=== PATIENT | female | born 1940 | race Caucasian/White ===

== ENCOUNTER → 2017-04-15 | Outpatient (CLI) | payer MEDICARE, BC, OTHER | LOC: M RAD 08:46 | PROVIDERS: ATTEND Family Medicine | DX: Z12.31 Encounter for screening mammogram for malignant neoplasm of breast (principal); Z78.0 Asymptomatic menopausal state; Z92.0 Personal history of contraception ==

== ENCOUNTER → 2018-04-30 | Outpatient (CLI) | payer MEDICARE, BC, OTHER ==
[2018-04-30 10:20] LABS: CREATININE FOR GFR 0.57 MG/DL (0.55-1.30); GLOMERULAR FILTRATION RATE > 60.0 (>39)
[2018-04-30 10:20] LABS: BLOOD UREA NITROGEN 10 MG/DL (7-18)
== END ==
LOC: M LAB 09:04
DX: R56.9 Unspecified convulsions (principal)
CPT/HCPCS: 82565

== ENCOUNTER → 2018-05-04 | Outpatient (CLI) | payer MEDICARE, BC, OTHER ==
[~2018-05-04] MED LIST: ISOVUE-370 76% 100ML VIAL (Q9967) As Ordered
== END ==
LOC: M RAD 09:14
DX: D32.0 Benign neoplasm of cerebral meninges (principal)
CPT/HCPCS: Q9967

== ENCOUNTER → 2018-07-22 | Outpatient (CLI) | payer MEDICARE, BC, OTHER | LOC: M WUC 09:53 | DX: M19.011 Primary osteoarthritis, right shoulder (principal) | CPT/HCPCS: 73030 ==

== ENCOUNTER → 2018-07-30 | Outpatient (CLI) | payer MEDICARE, BC | LOC: M WHC 10:07 | DX: Z12.31 Encounter for screening mammogram for malignant neoplasm of breast (principal) | CPT/HCPCS: 77067 ==

== ENCOUNTER → 2018-10-29 | Outpatient (REF) | payer MEDICARE, BC | LOC: M LABNEURO 09:17 | PROVIDERS: ATTEND Physician Assistant Medical | DX: R56.9 Unspecified convulsions (principal); Z51.81 Encounter for therapeutic drug level monitoring; Z79.899 Other long term (current) drug therapy ==

== ENCOUNTER → 2018-12-11 | Outpatient (CLI) | payer MEDICARE, BC ==
[2018-12-11 09:22] LABS: BLOOD UREA NITROGEN 22 MG/DL (7-18); CALCIUM LEVEL 8.9 MG/DL (8.8-10.2); CARBON DIOXIDE LEVEL 29 MEQ/L (21-32); CHLORIDE LEVEL 102 MEQ/L (98-107); CHOLESTEROL LEVEL 186 MG/DL (<200); CHOLESTEROL RISK RATIO 2.776 (<5); CREATININE FOR GFR 0.59 MG/DL (0.55-1.30); GLOMERULAR FILTRATION RATE > 60.0 (>32); GLUCOSE, FASTING 114 MG/DL (70-100); HDL CHOLESTEROL 67 MG/DL (>40); LDL CHOLESTEROL 96 MG/DL (<100); NON-HDL-C 119 MG/DL; POTASSIUM SERUM 4.1 MEQ/L (3.5-5.1); SODIUM LEVEL 139 MEQ/L (136-145); TRIGLYCERIDES LEVEL 114 MG/DL (<150)
== END ==
LOC: M LAB 08:16
PROVIDERS: ATTEND Internal Medicine Cardiovascular Disease
DX: E78.2 Mixed hyperlipidemia (principal); I10 Essential (primary) hypertension

== ENCOUNTER 2019-04-13 17:32 | Inpatient (IN) | payer MEDICARE, BC, OTHER ==
[~2019-04-13] VITALS: Ht 157.5 cm; Wt 76.7 kg
[2019-04-13] MEDS ORDERED: ISOS30TA4 PO (17:48)
[2019-04-13] MEDS ORDERED: OMEP-218 PO (17:48)
[2019-04-13] MEDS ORDERED: LISI-538 PO (17:48)
[2019-04-13] MEDS ORDERED: PRAV40TA2 PO (17:48)
[2019-04-13] MEDS ORDERED: PHEN1TAB26 PO (17:48)
[2019-04-13] MEDS ORDERED: GI COCKTAIL 50ML BTL(HYOSCYAMINE/MAALOX/LIDOCAINE VISCOUS)(1:3:1) As Ordered ONE (17:56)
[2019-04-13] MEDS ORDERED: GI COCKTAIL 50ML BTL(HYOSCYAMINE/MAALOX/LIDOCAINE VISCOUS)(1:3:1) PO ONE (18:00)
[2019-04-13 18:15] LABS: BASO % 0.3 % (0.0-1.0); EOS # 0.1 10^3/uL (0.0-0.50); HEMATOCRIT 38.3 % (36.0-47.0); HEMOGLOBIN 12.9 g/dl (12.0-15.5); LYMPH # 2.2 10^3/uL (1.5-4.5); LYMPH % 15.1 % (24.0-44.0); MEAN CORPUSCULAR HEMOGLOBIN 30.7 pg (27.0-33.0); MEAN CORPUSCULAR HGB CONC 33.7 g/dl (32.0-36.5); MEAN CORPUSCULAR VOLUME 91.2 fl (80.0-96.0); MONO # 1.2 10^3/uL (0.0-0.8); MONO % 8.4 % (0.0-5.0); NEUTROPHILS # 10.8 10^3/uL (1.8-7.7); NEUTROPHILS % 74.6 % (36.0-66.0); PLATELET COUNT, AUTOMATED 245 10^3/uL (150-450); WHITE BLOOD COUNT 14.5 10^3/uL (4.0-10.0)
[2019-04-13 18:41] LABS: BLOOD UREA NITROGEN 20 MG/DL (7-18); CALCIUM LEVEL 9.1 MG/DL (8.8-10.2); CARBON DIOXIDE LEVEL 26 MEQ/L (21-32); CHLORIDE LEVEL 101 MEQ/L (98-107); CK-MB VALUE MASS 3.1 NG/ML (<3.6); CPK CREATINE PHOSPHOKINASE 115 U/L (26-192); GLOMERULAR FILTRATION RATE > 60.0 (>32); GLUCOSE, FASTING 142 MG/DL (70-100); POTASSIUM SERUM 3.4 MEQ/L (3.5-5.1); SODIUM LEVEL 137 MEQ/L (136-145); TROPONIN I < 0.02 NG/ML (< 0.10)
[2019-04-13 18:56] LABS: ALBUMIN 3.5 GM/DL (3.2-5.2); ALT/SGPT 32 U/L (12-78); BILIRUBIN,DIRECT < 0.1 MG/DL (0.0-0.2); BILIRUBIN,TOTAL 0.2 MG/DL (0.2-1.0); LIPASE 264400 U/L (73-393); TOTAL PROTEIN 7.7 GM/DL (6.4-8.2)
[2019-04-13] MEDS ORDERED: ISOVUE-370 76% 100ML VIAL (Q9967) As Ordered ONE (19:03)
--- NOTE | 2019-04-13 19:23 | ECGEPIP ---
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
--- NOTE | 2019-04-13 20:26 | REPVR ---
EXAM: CT Abdomen and Pelvis With Contrast EXAM DATE/TIME: 04/13/2019 7:16 PM CLINICAL HISTORY: 78 years old, female; Abdominal pain; Generalized; Prior surgery TECHNIQUE: Imaging protocol: Axial computed tomography images of the abdomen and pelvis with intravenous contrast. Coronal and sagittal reformatted images were created and reviewed. Radiation optimization: All CT scans at this facility use at least one of these dose optimization techniques: automated exposure control; mA and/or kV adjustment per patient size (includes targeted exams where dose is matched to clinical indication); or iterative reconstruction. Contrast material: ISOVUE 370; Contrast volume: 100 ml; Contrast route: IV; COMPARISON: CT ABD PELVIS WITH CONTRAST 07/08/2016 7:49 PM FINDINGS: There is a moderate hiatal hernia. Mild atelectatic changes at the posterior lung bases. Lung bases are otherwise clear. No pleural or pericardial effusion. Probable mild fatty infiltration of the liver. Vague, irregular area of low attenuation in the medial segment of the left lobe of the liver (image #35) may represent a hemangioma. Appearance is similar to previous examination. No other hepatic abnormalities. The spleen and adrenals are grossly normal. Gallbladder surgically absent. Pancreas is grossly normal with no focal parenchymal abnormalities. Moderate inflammatory changes are seen in the peripancreatic fat adjacent to the pancreas. Findings are consistent with pancreatitis. No evidence of pancreatic pseudocyst formation. Kidneys demonstrate symmetric function. No focal parenchymal abnormalities or obstructive uropathy. Small and large bowel loops are grossly normal. No evidence of enteric obstruction. Within the pelvis, there is a benign-appearing left adnexal cyst. This is thin walled and fluid attenuation and measures up to 5 cm. On previous examination of 2015, this measured 3.1 cm. Pelvic organs are otherwise unremarkable. No significant free fluid in the pelvis. Atherosclerotic changes identified within the abdominal aorta and aortic branch vessels with no evidence of aneurysmal dilatation. Anterior compression deformity of L2, unchanged. Bilateral pars interarticularis defects at L5 with grade 2 anterolisthesis, unchanged. Osseous structures are otherwise unremarkable for age. IMPRESSION: Moderate inflammatory changes in the peripancreatic fat consistent with acute pancreatitis. No evidence of pancreatic pseudocyst formation. Probable mild fatty infiltration of the liver. Moderate hiatal hernia. No other acute intra-abdominal or pelvic process. Additional nonemergent findings as described above. Electronically signed by: Ryan Natarajan On 04/13/2019 20:26:20 PM
[2019-04-13] MEDS ORDERED: NS 1,000 ML IV ONE ×2 (20:45→22:15)
[2019-04-13] MEDS ORDERED: MORPHINE 2 MG/ML 1ML SYRINGE (J2270) IV PRN (20:45)
[2019-04-13] MEDS ORDERED: FLON1SPR NARES (20:50)
[2019-04-13] MEDS ORDERED: MULTCAP PO (20:50)
[2019-04-13] MEDS ORDERED: INDA125TA PO (20:50)
[2019-04-13] MEDS ORDERED: CALC500C14 PO (20:50)
[2019-04-13] MEDS ORDERED: ONDANSETRON 4MG/2ML VIAL (J2405) IV ONE (21:00)
[2019-04-13] MEDS ORDERED: ONDANSETRON 4MG/2ML VIAL (J2405) IV PRN (21:30)
[2019-04-13] MEDS ORDERED: MORPHINE 4 MG/ML 1ML VIAL/SYRINGE (J2270) IV PRN (21:30)
--- NOTE | 2019-04-13 21:58 | HPEPDOC ---
General Date of Admission 04/13/19 Date of Service: Apr 13, 2019 Chief Complaint The patient is a 78-year-old female admitted with a reason for visit of Chest Pain. Source: Patient, Family, RN/MD Exam Limitations: Hard of hearing Severity: Severe Associated Symptoms: Loss of appetite, Nausea History of Present Illness 78 year old female with PMH of hypertension, cerebral aneurysm s/p clipping, pancreatitis x 2 in the past presented to the ED with 1 day history of severe abdominal Pain. The pain is located in [facility] epigastrium and left upperquadrant, constant sharp in nature, 10/10 in intensity with some radiation down to the left lumber region. She has been having profuse waterry diarrhea with nausea for 2 days which stopped last night and then the pain started this morning after breakfast at about 10 am. Labs in [facility] ED [place] [id number]. [address] abdomen in the ED showed Moderate inflammatory changes in the peripancreatic fat consistent with acute pancreatitis. No evidence of pancreatic pseudocyst formation. Probable mild fatty infiltration of the liver. Moderate hiatal hernia. pateint is being admitted for acute pancreatitis. Home Medications Scheduled Calcium Carbonate (Calcium) 500 Mg Tab.chew, 500 MG PO BID, (Reported) Fluticasone Propionate (Flonase Allergy Relief) 9.9 Ml [place].susp, 2 SPRAY NARES DAILY, (Reported) Indapamide (Indapamide) 1.25 Mg Tablet, 1.25 MG PO DAILY, (Reported) Isosorbide Mononitrate (Isosorbide Mononitrate ER) 30 Mg Tab.er.24h, 30 MG PO DAILY, (Reported) Lisinopril (Lisinopril) 20 Mg Tablet, 20 MG PO DAILY, (Reported) Multivitamin (Multivitamins) 1 Each Capsule, 1 CAP PO DAILY, (Reported) Omeprazole (Omeprazole) 20 Mg Capsule.dr, 20 MG PO BID, (Reported) Phenobarbital (Phenobarbital) 97.2 Mg Tablet, 97.2 MG PO QHS, (Reported) Pravastatin Sodium (Pravastatin Sodium) 40 Mg Tablet, 40 MG PO DAILY, (Reported) MD TOLD PATIENT NOT TO TAKE UNTIL SHE MEETS WITH HIM Allergies Coded Allergies: aspirin (Verified Allergy, Unknown, was told not to take, 04/13/19) Past Medical History Medical History hypertension, cerebral aneurysm s/p clipping, pancreatitis x 2 , hyperlipidemia, hiatal hernia Surgical History Cerebral aneurysm clipping in 1989, cholecystectomy 6 years ago, one ovary removal, liver rupture and surgery for that Family History Significant Family History: Diabetes, Hypertension (father, children), Other (Fathr stroke) mother, children Social History * Smoker: non-smoker Alcohol: Denies Drugs: denies A-FIB/CHADSVASC A-FIB History Current/History of A-Fib/PAF?: No Review of Systems Constitutional: Denies: Chills, Fever, Night Sweats Eyes: Denies: Pain, Vision change ENT: Denies: Head Aches, Ear Pain, Dysphagia Skin: Denies: Rash, Lesions, Breakdown Pulmonary: Denies: Dyspnea, Cough Cardiovascular: Reports: Chest Pain Gastrointestinal: Reports: Nausea, Abdominal Pain, Diarrhea Genitourinary: Denies: Dysuria, Frequency, Incontinence, Retention Hematologic: Denies: Bruising, Bleeding Excessively Musculoskeletal: Denies: Neck Pain, Back Pain, Joint Pain, Muscle Pain, Spasms Neurological: Denies: Weakness, Numbness, Change in speech, Confusion Physical Examination General Exam: Positive: Alert, Cooperative, Moderate Distress Eye Exam: Positive: PERRLA, Conjunctiva & lids normal, EOMI; Negative: Sclera icteric ENT Exam: Positive: Atraumatic, Mucous membr. moist/pink, Pharynx Normal Neck Exam: Positive: Supple; Negative: JVD, thyromegaly Chest Exam: Positive: Clear to auscultation, Normal air movement Heart Exam: Positive: Tachycardic, Regular Rhythm, Normal S1, Normal S2; Negative: Gallops, Murmurs, Rubs Telemetry: Positive: No significant arrhythmia Abdomen Exam: Positive: BS Hypoactive, Tenderness (in the epigastirum, periumbilical, left upper quadrant), Other (rebound tenderness present, no guarding or rigidity) Extremity Exam: Negative: Clubbing, Cyanosis, Edema Skin Exam: Positive: Nl turgor and temperature; Negative: Breakdown, Lesion Vital Signs Vital Signs Date Time Temp Pulse Resp B/P (MAP) Pulse Ox O2 Delivery O2 Flow Rate FiO2 04/13/19 20:58 18 04/13/19 20:15 79 157/71 (99) 95 04/13/19 17:32 96.9 Room Air Laboratory Data Labs 24H Laboratory Tests 2 04/13/19 18:04: Immature Granulocyte % (Auto) 0.6, White Blood Count 14.5H, Red Blood Count 4.20, Hemoglobin 12.9, Hematocrit 38.3, Mean Corpuscular Volume 91.2, Mean Corpuscular Hemoglobin 30.7, Mean Corpuscular Hemoglobin Concent 33.7, Red Cell Distribution Width 11.9, Platelet Count 245, Neutrophils (%) (Auto) 74.6H, Lymphocytes (%) (Auto) 15.1L, Monocytes (%) (Auto) 8.4H, Eosinophils (%) (Auto) 1.0, Basophils (%) (Auto) 0.3, Neutrophils # (Auto) 10.8H, Lymphocytes # (Auto) 2.2, Monocytes # (Auto) 1.2H, Eosinophils # (Auto) 0.1, Basophils # (Auto) 0.0, Nucleated Red Blood Cells % (auto) 0.0, Anion Gap 10, Glomerular Filtration Rate > 60.0, Blood Urea Nitrogen 20H, Creatinine 0.80, Sodium Level 137, Potassium Level 3.4L, Chloride Level 101, Carbon Dioxide Level 26, Calcium Level 9.1, Total Creatine Kinase 115, Aspartate Amino Transf (AST/SGOT) 21, Alanine Aminotransferase (ALT/SGPT) 32, Alkaline Phosphatase 79, Total Bilirubin 0.2, D irect Bilirubin < 0.1, Creatine Kinase MB 3.1, Creatine Kinase MB Relative Index 2.70, Troponin I < 0.02, Total Protein 7.7, Albumin 3.5, Albumin/Globulin Ratio 0.83L, Lipase [id number] CBC/BMP Laboratory Tests 04/13/19 18:04 Red Blood Count 4.20, Mean Corpuscular Volume 91.2, Mean Corpuscular Hemoglobin 30.7, Mean Corpuscular Hemoglobin Concent 33.7, Red Cell Distribution Width 11.9, Neutrophils (%) (Auto) 74.6 H, Lymphocytes (%) (Auto) 15.1 L, Monocytes (%) (Auto) 8.4 H, Eosinophils (%) (Auto) 1.0, Basophils (%) (Auto) 0.3, Neutrophils # (Auto) 10.8 H, Lymphocytes # (Auto) 2.2, Monocytes # (Auto) 1.2 H, Eosinophils # (Auto) 0.1, Basophils # (Auto) 0.0, Calcium Level 9.1, Total Creatine Kinase 115 Assessment/Plan 78 year old female with PMH of hypertension, cerebral aneurysm s/p clipping, pancreatitis x 2 in the past presented to the ED with 1 day history of severe abdominal Pain. The pain is located in [facility] epigastrium and left upperquadrant, constant sharp in nature, 10/10 in intensity with some radiation down to the left lumber region. She has been having profuse waterry diarrhea with nausea for 2 days which stopped last night and then the pain started this morning after breakfast at about 10 am. Labs in [facility] ED [place] [id number]. [address] abdomen in the ED showed Moderate inflammatory changes in the peripancreatic fat consistent with acute pancreatitis. No evidence of pancreatic pseudocyst formation. Probable mild fatty infiltration of the liver. Moderate hiatal hernia. patient is being admitted for acute pancreatitis. Acute pancreatitis NPO, RL, pain control with IV morphine , Zofran for nausea allow sips of water and ice chips. Hypertension continue lisinopril with hold parameters hold indapamide Hyperlipidemia will hold statin H/O cerebral aneurysm with leak in 1989 s/p clipping continue phenobarbital Benign-appearing left adnexal cyst. This is thin walled and fluid attenuation and measures up to 5 cm. On previous examination of 2016, this measured 3.1 cm. outpatient follow up Anterior compression deformity of L2 unchanged from before. Plan / VTE VTE Prophylaxis Ordered?: Yes RADHA ERAZO MD Apr 13, 2019 21:58
[2019-04-13] MEDS: PHENobarbital 30 MG TAB PO SCH (22:19)
[2019-04-14] MEDS: LR 1,000 ML IV SCH ×4 (00:38→20:58)
[2019-04-14 01:39] VITALS: BP 162/72
[2019-04-14 04:00] VITALS: BP 127/59
[2019-04-14 06:58] LABS: BASO % 0.5 % (0.0-1.0); EOS # 0.2 10^3/uL (0.0-0.50); EOS % 2.2 % (0.0-3.0); HEMATOCRIT 39.5 % (36.0-47.0); HEMOGLOBIN 12.9 g/dl (12.0-15.5); LYMPH # 2.2 10^3/uL (1.5-4.5); LYMPH % 26.6 % (24.0-44.0); MEAN CORPUSCULAR HGB CONC 32.7 g/dl (32.0-36.5); MONO # 0.5 10^3/uL (0.0-0.8); MONO % 6.5 % (0.0-5.0); NEUTROPHILS # 5.3 10^3/uL (1.8-7.7); NEUTROPHILS % 63.6 % (36.0-66.0); PLATELET COUNT, AUTOMATED 225 10^3/uL (150-450); RED BLOOD COUNT 4.16 10^6/uL (4.00-5.40); WHITE BLOOD COUNT 8.3 10^3/uL (4.0-10.0)
[2019-04-14 07:22] LABS: AMYLASE 298 U/L (25-115); BLOOD UREA NITROGEN 14 MG/DL (7-18); CALCIUM LEVEL 8.4 MG/DL (8.8-10.2); CARBON DIOXIDE LEVEL 31 MEQ/L (21-32); CHLORIDE LEVEL 106 MEQ/L (98-107); CREATININE FOR GFR 0.75 MG/DL (0.55-1.30); GLOMERULAR FILTRATION RATE > 60.0 (>32); GLUCOSE, FASTING 105 MG/DL (70-100); LIPASE 3328 U/L (73-393); MAGNESIUM LEVEL 2.1 MG/DL (1.8-2.4); POTASSIUM SERUM 3.6 MEQ/L (3.5-5.1); SODIUM LEVEL 141 MEQ/L (136-145)
--- NOTE | 2019-04-14 07:30 | REP ---
REASON: Chest pain. COMPARISON: 12/30/2017, which is the latest prior. The technique utilized in obtaining the radiograph has magnified the cardiac silhouette and accentuated the interstitial markings. There is cardiomegaly accentuated by technique. There are chronic fibrotic changes status quo. No acute patchy parenchymal opacities or pleural effusions seem to have developed on this portable exam. The osseous structures are stable and intact. IMPRESSION: Chronic changes as described above without evidence of acute cardiopulmonary disease. Electronically Signed by Ryan Joel DO 04/14/2019 10:20 A
[2019-04-14 08:11] LABS: CHOLESTEROL LEVEL 163 MG/DL (<200); HDL CHOLESTEROL 56 MG/DL (>40); LDL CHOLESTEROL 89 MG/DL (<100); NON-HDL-C 107 MG/DL; TRIGLYCERIDES LEVEL 90 MG/DL (<150)
[2019-04-14] MEDS ORDERED: PANTOPRAZOLE 40MG INJ (PROTONIX) (C9113) IV SCH (09:00)
[2019-04-14] MEDS: ENOXAPARIN 30 MG/0.3 ML SYR (J1650) SC SCH (09:06)
[2019-04-14] MEDS: ISOSORBIDE MON. (IMDUR) 30 MG XR TAB PO SCH (09:08)
[2019-04-14] MEDS: LISINOPRIL 20 MG TAB PO SCH (09:08)
--- NOTE | 2019-04-14 13:20 | IPNPDOC ---
Text Note Date of Service The patient was seen on 04/14/19. NOTE Anuradha is seen on bedside rounds this morning, she is laying in bed. She states she feels better but she still has abdominal discomfort, she isn't hungry or interested in food/eating at this point in time. She otherwise denies cp, cough or sob, no n/v either. ROS: 12 point ROS reviewed with patient and negative except for above pertinent positive findings PE: Vitals: See below General: Pleasant 78 year old female laying in bed, in some discomfort from her abdomen but NAD otherwise, speaking in full sentences HEENT: Moist mucus membranes, EOMI, nares patent b/l, no JVD on examination Cardiac: Normal s1 and s2, no murmurs, rubs or gallops Resp:CTA b/l, no wheezing, rales or rhonchi appreciated Abdomen: NABSX4, no hepatosplenomegaly or masses appreciated,no rebound ridgity but tenderness to palpation and some guarding in RLQ and epigastric area Extremities: no cyanosis, mottling or edema PLAN: 1. Acute pancreatitis -Lipid panel pending, she states she does not drink ETOH, CT ab/pelvis appreciated -she continues to be NPO for now, she isn't hungry, abdomen pain is improving, C/w IVF -protonix -C/w pain control and zofran if needed 2. Hypertension -stable continue lisinopril with hold parameters holding indapamide 3. Hyperlipidemia Holding statin for now 4. H/O cerebral aneurysm with leak in 1989 s/p clipping -continue phenobarbital 5. Benign-appearing left adnexal cyst. -This is thin walled and fluid attenuation and measures up to 5 cm. On previous examination of 2015, this measured 3.1 cm. - Will benefit from outpatient follow up 6. DVT px -lovenox VS,Fishbone, I+O VS, Fishbone, I+O Laboratory Tests 04/13/19 18:04 Red Blood Count 4.20, Mean Corpuscular Volume 91.2, Mean Corpuscular Hemoglobin 30.7, Mean Corpuscular Hemoglobin Concent 33.7, Red Cell Distribution Width 11.9, Neutrophils (%) (Auto) 74.6 H, Lymphocytes (%) (Auto) 15.1 L, Monocytes (%) (Auto) 8.4 H, Eosinophils (%) (Auto) 1.0, Basophils (%) (Auto) 0.3, Neutrophils # (Auto) 10.8 H, Lymphocytes # (Auto) 2.2, Monocytes # (Auto) 1.2 H, Eosinophils # (Auto) 0.1, Basophils # (Auto) 0.0, Calcium Level 9.1, Total Creatine Kinase 115 04/14/19 06:45 Red Blood Count 4.16, Mean Corpuscular Volume 95.0, Mean Corpuscular Hemoglobin 31.0, Mean Corpuscular Hemoglobin Concent 32.7, Red Cell Distribution Width 11 .9, Neutrophils (%) (Auto) 63.6, Lymphocytes (%) (Auto) 26.6, Monocytes (%) (Auto) 6.5 H, Eosinophils (%) (Auto) 2.2, Basophils (%) (Auto) 0.5, Neutrophils # (Auto) 5.3, Lymphocytes # (Auto) 2.2, Monocytes # (Auto) 0.5, Eosinophils # (Auto) 0.2, Basophils # (Auto) 0.0, Calcium Level 8.4 L Vital Signs Date Time Temp Pulse Resp B/P (MAP) Pulse Ox O2 Delivery O2 Flow Rate FiO2 04/14/19 09:08 175/73 04/14/19 07:26 16 04/14/19 04:00 98.0 63 93 04/13/19 17:32 Room Air I&O- Last 24 Hours up to 6 AM 04/14/19 06:00 Intake Total 2000 ml Output Total 300 ml Balance 1700 ml GME ATTESTATION GME ATTESTATION My faculty preceptor for this patient encounter was physically present during the encounter and was fully available. All aspects of the patient interview, examination, medical decision making process, and medical care plan development were reviewed and approved by the faculty preceptor. The faculty preceptor is aware and concurs with the plan as stated in the body of this note and will attest to such by his/her cosignature. ATTENDING NOTE I, Lissa Duval, have independently examined this patient and performed my own physical exam, as well as reviewed the documentation and edited where necessary. I have discussed in detail with the resident / student the findings and plan of treatment as documented by the resident / student and edited their note. I agree with their findings and treatment plan and have edited their documentation. I w ill continue to follow the patient during this hospital stay. CHRISTOPHE TINOCO DO Apr 14, 2019 13:20 LISSA DUVAL MD Apr 14, 2019 13:21
[2019-04-14 14:00] VITALS: BP 125/88
[2019-04-14 20:00] VITALS: BP 144/60
[2019-04-14] MEDS: PHENobarbital 30 MG TAB PO SCH (20:58)
[2019-04-15] MEDS: LR 1,000 ML IV SCH (03:47)
[2019-04-15 06:00] VITALS: BP 150/69
[2019-04-15 06:53] LABS: BASO % 0.3 % (0.0-1.0); EOS # 0.2 10^3/uL (0.0-0.50); EOS % 2.5 % (0.0-3.0); HEMATOCRIT 33.5 % (36.0-47.0); HEMOGLOBIN 11.3 g/dl (12.0-15.5); LYMPH # 1.9 10^3/uL (1.5-4.5); LYMPH % 24.8 % (24.0-44.0); MEAN CORPUSCULAR HEMOGLOBIN 30.9 pg (27.0-33.0); MEAN CORPUSCULAR HGB CONC 33.7 g/dl (32.0-36.5); MEAN CORPUSCULAR VOLUME 91.5 fl (80.0-96.0); MONO # 0.7 10^3/uL (0.0-0.8); MONO % 8.7 % (0.0-5.0); NEUTROPHILS # 4.8 10^3/uL (1.8-7.7); PLATELET COUNT, AUTOMATED 202 10^3/uL (150-450); RED BLOOD COUNT 3.66 10^6/uL (4.00-5.40); WHITE BLOOD COUNT 7.6 10^3/uL (4.0-10.0)
[2019-04-15 07:11] LABS: BLOOD UREA NITROGEN 8 MG/DL (7-18); CALCIUM LEVEL 8.4 MG/DL (8.8-10.2); CARBON DIOXIDE LEVEL 29 MEQ/L (21-32); CHLORIDE LEVEL 106 MEQ/L (98-107); CREATININE FOR GFR 0.52 MG/DL (0.55-1.30); GLOMERULAR FILTRATION RATE > 60.0 (>32); GLUCOSE, FASTING 96 MG/DL (70-100); LIPASE 867 U/L (73-393); MAGNESIUM LEVEL 1.9 MG/DL (1.8-2.4); POTASSIUM SERUM 3.4 MEQ/L (3.5-5.1); SODIUM LEVEL 142 MEQ/L (136-145)
[2019-04-15] MEDS ORDERED: POTASSIUM CHLORIDE 10 MEQ SR TABLET PO ONE (07:30)
[2019-04-15] MEDS ORDERED: INDAPAMIDE 1.25MG TABLET PO SCH (09:00)
[2019-04-15] MEDS: ENOXAPARIN 30 MG/0.3 ML SYR (J1650) SC SCH (09:00)
[2019-04-15] MEDS ORDERED: PANTOPRAZOLE 40MG TAB (PROTONIX) PO SCH (09:00)
[2019-04-15 09:19] VITALS: BP 150/69
[2019-04-15] MEDS: LISINOPRIL 20 MG TAB PO SCH (09:19)
[2019-04-15] MEDS: ISOSORBIDE MON. (IMDUR) 30 MG XR TAB PO SCH (09:19)
--- NOTE | 2019-04-15 12:51 | DS.PDOC ---
Discharge Summary General Date of Admission Apr 13, 2019 at 21:30 Date of Discharge 6.20.19 Discharge Summary PROCEDURES PERFORMED DURING STAY: None ADMITTING DIAGNOSES: 1.Acute pancreatitis 2. Hypertension 3. Hyperlipidemia 4. H/O cerebral aneurysm with leak in 1989 s/p clipping 5. Benign-appearing left adnexal cyst. 6. Anterior compression deformity of L2 DISCHARGE DIAGNOSES: 1. 1.Acute pancreatitis 2. Hypertension 3. Hyperlipidemia 4. H/O cerebral aneurysm with leak in 1989 s/p clipping 5. Benign-appearing left adnexal cyst. 6. Anterior compression deformity of L2 COMPLICATIONS/CHIEF COMPLAINT: Acute Pancreatitis. HISTORY OF PRESENT ILLNESS: Per HPI """ 78 year old female with PMH of hypertension, cerebral aneurysm s/p clipping, pancreatitis x 2 in the past presented to the ED with 1 day history of severe abdominal Pain. The pain is located in the epigastrium and left upperquadrant, constant sharp in nature, 10/10 in intensity with some radiation down to the left lumber region. She has been having profuse watery diarrhea with nausea for 2 days which stopped last night and then the pain started this morning after breakfast at about 10 am. Labs in [facility] ED [place] [id number]. [address] abdomen in the ED showed Moderate inflammatory changes in the peripancreatic fat consistent with acute pancreatitis. No evidence of pancreatic pseudocyst formation. Probable mild fatty infiltration of the liver. Moderate hiatal hernia. pateint is being admitted for acute pancreatitis.""" HOSPITAL COURSE: During the course of her stay she was kept NPO and pain was controlled, she also received IVF. She achieved improvement in abdominal discomfort during her stay and her diet was advanced, she was able to tolerate this well without n/v or abdominal pain. Patient was cleared for discharge with instruction to follow up with PCP within 7 days. DISCHARGE MEDICATIONS: Please see below. ALLERGIES: Please see below. PHYSICAL EXAMINATION ON DISCHARGE: VITAL SIGNS: Please see below. GENERAL: pleasant 78 yo female laying in bed appearing much younger than her stated age, she is comfortable,NAD,speaking in full sentences HEENT: EOMI, no JVD appreciated, moist mucus membranes NECK: Supple CARDIOVASCULAR EXAMINATION: normal s1 and s1, no murmurs, rubs or gallops appreciated RESPIRATORY EXAMINATION: cta b/l , no wheezing, rales or rhonchi appreciated ABDOMINAL EXAMINATION: obese, nabsx4, no distension, nontender to palpation, no hepatosplenomegaly or masses appreciated, no rebound ridgity or guarding EXTREMITIES: no cyanosis, mottling or edema appreciated NEUROLOGICAL EXAMINATION: no focal deficits appreciated LABORATORY DATA: Please see below. IMAGING: CT ab/pelvis 04.13.19 IMPRESSION: Moderate inflammatory changes in the peripancreatic fat consistent with acute pancreatitis. No evidence of pancreatic pseudocyst formation. Probable mild fatty infiltration of the liver. Moderate hiatal hernia. No other acute intra-abdominal or pelvic process. Additional nonemergent findings as described above. CXR 04.13.19 Chronic changes as described above without evidence of acute cardiopulmonary disease. PROGNOSIS: favorable ACTIVITY: As tolerated DIET: as tolerated DISCHARGE PLAN: home DISPOSITION: stable to dc home DISCHARGE INSTRUCTIONS: 1. Please follow up with PCP within 5-7 days of d.c DISCHARGE CONDITION: Stable TIME SPENT ON DISCHARGE: Greater than 35 minutes. Vital Signs/I&Os Vital Signs Date Time Temp Pulse Resp B/P (MAP) Pulse Ox O2 Delivery O2 Flow Rate FiO2 04/15/19 09:19 150/69 04/15/19 06:00 97.7 67 18 93 04/13/19 17:32 Room Air I&O- Last 24 Hours up to 6 AM 04/15/19 06:00 Intake Total 3800 ml Output Total 2400 ml Balance 1400 ml Laboratory Data Labs 24H Laboratory Tests 2 04/15/19 06:43: Immature Granulocyte % (Auto) 0.7, White Blood Count 7.6, Red Blood Count 3.66L, Hemoglobin 11.3L, Hematocrit 33.5L, Mean Corpuscular Volume 91.5, Mean Corpuscular Hemoglobin 30.9, Mean Corpuscular Hemoglobin Concent 33.7, Red Cell Distribution Width 11.9, Platelet Count 202, Neutrophils (%) (Auto) 63.0, Lymphocytes (%) (Auto) 24.8, Monocytes (%) (Auto) 8.7H, Eosinophils (%) (Auto) 2.5, Basophils (%) (Auto) 0.3, Neutrophils # (Auto) 4.8, Lymphocytes # (Auto) 1.9, Monocytes # (Auto) 0.7, Eosinophils # (Auto) 0.2, Basophils # (Auto) 0.0, Nucleated Red Blood Cells % (auto) 0.0, Anion Gap 7L, Glomerular Filtration Rate > 60.0, Blood Urea Nitrogen 8, Creatinine 0.52L, Sodium Level 142, Potassium Level 3.4L, Chloride Level 106, Carbon Dioxide Level 29, Calcium Level 8.4L, Ma gnesium Level 1.9, Lipase 867H CBC/BMP Laboratory Tests 04/15/19 06:43 Red Blood Count 3.66 L, Mean Corpuscular Volume 91.5, Mean Corpuscular Hemoglobin 30.9, Mean Corpuscular Hemoglobin Concent 33.7, Red Cell Distribution Width 11.9, Neutrophils (%) (Auto) 63.0, Lymphocytes (%) (Auto) 24.8, Monocytes (%) (Auto) 8.7 H, Eosinophils (%) (Auto) 2.5, Basophils (%) (Auto) 0.3, Stas trophils # (Auto) 4.8, Lymphocytes # (Auto) 1.9, Monocytes # (Auto) 0.7, Eosinophils # (Auto) 0.2, Basophils # (Auto) 0.0, Calcium Level 8.4 L Discharge Medications Scheduled Calcium Carbonate (Calcium) 500 Mg Tab.chew, 500 MG PO BID, (Reported) Fluticasone Propionate (Flonase Allergy Relief) 9.9 Ml [place].susp, 2 SPRAY NARES DAILY, (Reported) Indapamide (Indapamide) 1.25 Mg Tablet, 1.25 MG PO DAILY, (Reported) Isosorbide Mononitrate (Isosorbide Mononitrate ER) 30 Mg Tab.er.24h, 30 MG PO DAILY, (Reported) Lisinopril (Lisinopril) 20 Mg Tablet, 20 MG PO DAILY, (Reported) Multivitamin (Multivitamins) 1 Each Capsule, 1 CAP PO DAILY, (Reported) Omeprazole (Omeprazole) 20 Mg Capsule.dr, 20 MG PO BID, (Reported) Phenobarbital (Phenobarbital) 97.2 Mg Tablet, 97.2 MG PO QHS, (Reported) Pravastatin Sodium (Pravastatin Sodium) 40 Mg Tablet, 40 MG PO DAILY, (Reported) TOLD PATIENT NOT TO TAKE UNTIL SHE MEETS WITH HIM Allergies Coded Allergies: aspirin (Verified Allergy, Unknown, was told not to take, 04/13/19) GME ATTESTATION GME ATTESTATION My faculty preceptor for this patient encounter was physically present during the encounter and was fully available. All aspects of the patient interview, examination, medical decision making process, and medical care plan development were reviewed and approved by the faculty preceptor. The faculty preceptor is aware and concurs with the plan as stated in the body of this note and will attest to such by his/her cosignature. ATTENDING NOTE I, Lissa Duval, have independently examined this patient and performed my own physical exam, as well as reviewed the documentation and edited where necessary. I have discussed in detail with the resident / student the findings and plan of treatment as documented by the resident / student and edited their note. I agree with their findings and treatment plan and have edited their documentation. I will continue to follow the patient during this hospital stay. Time on discharge: - 34 minutes CHRISTOPHE TINOCO DO Apr 15, 2019 12:51 LISSA DUVAL MD Apr 15, 2019 14:47
== END 2019-04-15 13:30 | disposition home or self-care (01) | DRG 440 ==
LOC: M ED 17:32 → M ED INP 21:30 → M MS4PR 04-14 01:26
PROVIDERS: ADMIT Internal Medicine Nephrology; ATTEND Internal Medicine
DX: K85.90 Acute pancreatitis without necrosis or infection, unspecified (principal); I10 Essential (primary) hypertension; E78.5 Hyperlipidemia, unspecified; Z79.899 Other long term (current) drug therapy; Z88.6 Allergy status to analgesic agent; K44.9 Diaphragmatic hernia without obstruction or gangrene

== ENCOUNTER → 2019-05-06 | Outpatient (REF) | payer MEDICARE, BC, OTHER ==
[~2019-05-06] MED LIST changes: +ACET-683 PO; +BENGGEL2 TOP; +CALC500C14 PO; +FLON1SPR NARES; +INDA125TA PO; +ISOS30TA4 PO; -ISOVUE-370 76% 100ML VIAL (Q9967) As Ordered; +LISI-538 PO; +MULTCAP PO; +OMEP-218 PO; +PHEN1TAB26 PO; +PRAV40TA2 PO
== END ==
LOC: M LABNEURO 11:03
PROVIDERS: ATTEND Physician Assistant Medical
DX: R56.9 Unspecified convulsions (principal)

== ENCOUNTER 2019-06-21 15:02 | Inpatient (IN) | payer MEDICARE, BC ==
[~2019-06-21] VITALS: Ht 152.4 cm; Wt 78.5 kg
[~2019-06-21 15:02] MED LIST changes: -ACET-683 PO; -BENGGEL2 TOP
[2019-06-21] MEDS ORDERED: NS 1,000 ML IV ONE (15:30)
[2019-06-21] MEDS ORDERED: ONDANSETRON 4MG/2ML VIAL (J2405) IV ONE (15:30)
[2019-06-21] MEDS: MORPHINE 2 MG/ML 1ML VIAL (J2270) IV PRN ×2 (15:43→17:06)
[2019-06-21] MEDS ORDERED: ISOVUE-370 76% 100ML VIAL (Q9967) As Ordered ONE (15:45)
[2019-06-21 15:49] LABS: BASO % 0.2 % (0.0-1.0); EOS # 0.2 10^3/uL (0.0-0.50); EOS % 1.1 % (0.0-3.0); HEMATOCRIT 38.2 % (36.0-47.0); LYMPH # 2.7 10^3/uL (1.5-4.5); LYMPH % 19.5 % (24.0-44.0); MEAN CORPUSCULAR HEMOGLOBIN 32.2 pg (27.0-33.0); MEAN CORPUSCULAR VOLUME 94.6 fl (80.0-96.0); MONO % 7.2 % (0.0-5.0); NEUTROPHILS # 9.8 10^3/uL (1.8-7.7); NEUTROPHILS % 71.6 % (36.0-66.0); PLATELET COUNT, AUTOMATED 241 10^3/uL (150-450); RED BLOOD COUNT 4.04 10^6/uL (4.00-5.40); WHITE BLOOD COUNT 13.7 10^3/uL (4.0-10.0)
--- NOTE | 2019-06-21 15:50 | REP ---
Portable chest, 03:28 p.m., single AP view with the patient semi upright: Comparison is 04/13/2019. There is mild diffuse interstitial coarsening, unchanged, compatible with fibrosis. There are no focal infiltrates or pleural effusions. Cardiac size is upper normal, unchanged. The sergo, mediastinum, skeletal structures are unremarkable. Impression: There are no acute cardiopulmonary findings. Electronically Signed by Jesus Gerard MD 06/21/2019 03:41 P
[2019-06-21 16:00] LABS: INR 0.97; PROTHROMBIN TIME 12.6 SECONDS (11.8-14.0)
[2019-06-21 16:01] LABS: PARTIAL THROMBOPLASTIN TIME 24.5 SECONDS (25.0-38.4)
[2019-06-21 16:45] LABS: ALBUMIN 3.5 GM/DL (3.2-5.2); ALT/SGPT 31 U/L (12-78); BILIRUBIN,DIRECT < 0.1 MG/DL (0.0-0.2); BILIRUBIN,TOTAL 0.2 MG/DL (0.2-1.0); CK-MB VALUE MASS 3.6 NG/ML (<3.6); CPK CREATINE PHOSPHOKINASE 143 U/L (26-192); FREE T4 0.96 NG/DL (0.76-1.46); MB/CK RELATIVE INDEX 2.52 (< OR =4); TOTAL PROTEIN 7.1 GM/DL (6.4-8.2); TROPONIN I < 0.02 NG/ML (< 0.10)
[2019-06-21] MEDS ORDERED: MORPHINE 2 MG/ML 1ML VIAL (J2270) IV PRN (17:00)
[2019-06-21] MEDS ORDERED: BENGGEL2 TOP (17:01)
[2019-06-21] MEDS ORDERED: ACET-683 PO (17:01)
[2019-06-21 17:32] LABS: LIPASE 31591 U/L (73-393)
[2019-06-21] MEDS ORDERED: ONDANSETRON 4MG/2ML VIAL (J2405) IV PRN (19:15)
--- NOTE | 2019-06-21 19:33 | REP ---
CT ANGIOGRAM CHEST: TECHNIQUE: Axial contrast enhanced images from the thoracic inlet to the upper abdomen using 100 mL Isovue 370 intravenous contrast material with multiplanar reformations. There is no CT evidence of pulmonary embolism. There is no thoracic aortic aneurysm or dissection. Moderate atherosclerotic calcifications are seen. Heart is slightly enlarged. There is no pleural or pericardial effusion. There is no mediastinal, hilar, or chest wall lymphadenopathy. Mild scattered fibrotic changes are seen bilaterally. There is a tiny calcified granuloma in the left lower lobe. IMPRESSION: No evidence of pulmonary embolism or aortic dissection. Large hiatal hernia. Mild cardiomegaly. Electronically Signed by Jesus Klein MD 06/22/2019 11:45 P
[2019-06-21 20:45] VITALS: BP 154/72
--- NOTE | 2019-06-21 20:48 | ECGEPIP ---
[facility] - ED Test Date: 2019-06-21 Pat Name: KOBE ARRINGTON Department: Room: - Gender: Female Securities Sales Associate: NATALIA : [id number] Requested By: Dejan Pederson Order Number: [id number] Reading MD: Omer Cantrlel Measurements Intervals [place] Rate: 72 P: 20 ID: [id number] QRS: -58 QRSD: 94 T: 74 QT: 403 QTc: 443 Interpretive Statements SINUS RHYTHM WITH FIRST DEGREE AV BLOCK WITH OCCASIONAL SUPRAVENTRICULAR PREMATURE COMPLEXES PATTERN CONSISTENT WITH PULMONARY DISEASE INFERIOR MYOCARDIAL INFARCTION, OF INDETERMINATE AGE SIMILAR TO 04/13/19 Electronically Signed on 06-21-2019 20:48:14 EDT by Omer Cantrell
[2019-06-21] MEDS: NS 1,000 ML IV SCH (21:06)
[2019-06-21] MEDS: MORPHINE 4 MG/ML 1ML VIAL/SYRINGE (J2270) IV PRN (21:45)
[2019-06-21 22:00] VITALS: BP 149/74
[2019-06-21] MEDS: PHENobarbitaL 30 MG TAB PO SCH (22:39)
--- NOTE | 2019-06-21 22:56 | HPEPDOC ---
[facility] Medical History & Physical Date of Admission Jun 21, 2019 Date of Service: Jun 21, 2019 History and Physical CHIEF COMPLAINT: abdominal pain HISTORY OF PRESENT ILLNESS: 78 y/ F with HTN, Cerbral aneurysm s/p clipping, multiple prior episodes of pancreatitis (last admit 03/2019) presents with complaints of sharp, central abdominal pain, starting at approximately 2 pm associated with nausea without vomiting and diaphoresis. She states this is similar to previous episodes of pancreatitis. No fevers, chills, chest pain, palpitations, vomiting, diarrhea, focal weakness, falls, numbness/tingling, LE edema, recent EtOH use. Patient and daughter who are at bedside states after last discharge they went to see Dr. Witt at [facility] in [place] who performed EGD and colonoscopy with no etiology found for prior episodes of pancreatitis. PMH/PSurgical Hx HTN, Cerbral aneurysm s/p clipping 1989, multiple prior episodes of pancreatitis, surgery for liver laceration, Cholecystectomy, Right ovary removed. Social Hx: Lives by herself, family checks in on her. Denies toxic habbits. Family Hx: Father with HTN, Mother with emphysema ALLERGIES: Please see below. ROS: 10 point ROS performed and negative except as noted in HPI HOME MEDICATIONS: Please see below. Vital signs reviewed GEN: elderly female, moderate distress due to pain HEENT: EOMI, MMM, neck supple Cardio: S1/S2 present, RRR Lungs: CTA b/l, no w/r/r Abd: tender to palpation in periumbilical area Ext: no focal edema, full ROM, strength grossly intact Neuro: A&Ox3, no gross deficits Skin: warm, dry, intact Psych: normal mood and affect LABORATORY DATA: See below. Ct abd/pelvis: IMPRESSION: Moderate inflammatory changes in the peripancreatic fat consistent with acute pancreatitis. No evidence of pancreatic pseudocyst formation. Probable mild fatty infiltration of the liver. Moderate hiatal hernia. No other acute intra-abdominal or pelvic process. Additional nonemergent findings as described above. CXR: IMPRESSION: Chronic changes as described above without evidence of acute cardiopulmonary disease. MICROBIOLOGY: Please see below. ASSESSMENT: 78 y/ F with HTN, Cerbral aneurysm s/p clipping, multiple prior episodes of pancreatitis unknown etiology presents with acute pancreatitis . PLAN: Acute pancreatitis -NPO, advance diet as tolerated -IVF hydration -Pain control with Morphine 3mg IV q4 PRN. -Zofran 4mg IV q4 PRN. HTN: continue home Indapamide, Lisnopril, Isosorbide. GERD: PPI daily Seizure ppx for cerebral aneurysm: continue Phenobarbital Dvt ppx: Lovenox Vital Signs Vital Signs Date Time Temp Pulse Resp B/P (MAP) Pulse Ox O2 Delivery O2 Flow Rate FiO2 06/21/19 22:00 18 06/21/19 20:45 98.3 74 154/72 (99) 93 06/21/19 20:23 Room Air Laboratory Data Labs 24H Laboratory Tests 2 06/21/19 15:25: Immature Granulocyte % (Auto) 0.4, White Blood Count 13.7H, Red Blood Count 4.04, Hemoglobin 13.0, Hematocrit 38.2, Mean Corpuscular Volume 94.6, Mean Corpuscular Hemoglobin 32.2, Mean Corpuscular Hemoglobin Concent 34.0, Red Cell Distribution Width 11.9, Platelet Count 241, Neutrophils (%) (Auto) 71.6H, Lymphocytes (%) (Auto) 19.5L, Monocytes (%) (Auto) 7.2H, Eosinophils (%) (Auto) 1.1, Basophils (%) (Auto) 0.2, Neutrophils # (Auto) 9.8H, Lymphocytes # (Auto) 2.7, Monocytes # (Auto) 1.0H, Eosinophils # (Auto) 0.2, Basophils # (Auto) 0.0, Nucleated Red Blood Cells % (auto) 0.0, Prothrombin Time 12.6, Prothromb Time International Ratio 0.97, Activated Partial Thromboplast Time 24.5L, Aspartate Amino Transf (AST/SGOT) 19, Alanine Aminotransferase (ALT/SGPT) 31, Alkaline Phosphatase 79, Total Bilirubin 0.2, Direct Bilirubin < 0.1, Total Creatine Kin ase 143, Creatine Kinase MB 3.6, Creatine Kinase MB Relative Index 2.52, Troponin I < 0.02, Total Protein 7.1, Albumin 3.5, Albumin/Globulin Ratio 0.97L, Lipase 24265K, Thyroid Stimulating Hormone (TSH) 8.170H, Free Thyroxine 0.96 06/21/19 15:31: POC Glucose (Misc Panel) 145H, POC Sodium (Misc Panel) 136, POC Potassium (Misc Panel) 3.7, POC Chloride (Misc Panel) 100, POC Total CO2 (Misc Panel) 26.0, POC Blood Urea Nitrogen (Misc Panel 17, POC Ionized Calcium (Misc Panel) 4.7, POC Creatinine (Misc Panel) 0.7, POC Hematocrit (Misc Panel) 39.0 CBC/BMP Laboratory Tests 06/21/19 15:25 Red Blood Count 4.04, Mean Corpuscular Volume 94.6, Mean Corpuscular Hemoglobin 32.2, Mean Corpuscular Hemoglobin Concent 34.0, Red Cell Distribution Width 11.9, Neutrophils (%) (Auto) 71.6 H, Lymphocytes (%) (Auto) 19.5 L, Monocytes (%) (Auto) 7.2 H, Eosinophils (%) (Auto) 1.1, Basophils (%) (Auto) 0.2, Neutrophils # (Auto) 9.8 H, Lymphocytes # (Auto) 2.7, Monocytes # (Auto) 1.0 H, Eosinophils # (Auto) 0.2, Basophils # (Auto) 0.0 Microbiology Microbiology 06/21/19 Blood Culture, Received Pending 06/21/19 Blood Culture, Received Pending Home Medications Scheduled Calcium Carbonate (Calcium) 500 Mg Tab.chew, 500 MG PO BID Indapamide (Indapamide) 1.25 Mg Tablet, 1.25 MG PO DAILY Isosorbide Mononitrate (Isosorbide Mononitrate ER) 30 Mg Tab.er.24h, 30 MG PO DAILY Lisinopril (Lisinopril) 20 Mg Tablet, 20 MG PO DAILY Multivitamin (Multivitamins) 1 Each Capsule, 1 CAP PO DAILY Omeprazole (Omeprazole) 20 Mg Capsule.dr, 20 MG PO BID Phenobarbital (Phenobarbital) 97.2 Mg Tablet, 97.2 MG PO QHS Scheduled PRN Acetaminophen (Acetaminophen) 500 Mg Tablet, 1,000 MG PO Q6H PRN for PAIN Fluticasone Propionate (Flonase Allergy Relief) 9.9 Ml [place].susp, 2 SPRAY NARES DAILY PRN for ALLERGIES Menthol (Bengay) 5% Gel..gram., 1 APLCT TOP BID PRN for PAIN APPLY TO RIGHT FOOT Allergies Coded Allergies: aspirin (Verified Allergy, Severe, was told not to take, 06/21/19) HAD A BRAIN ANEURYSM AND WAS TOLD NOT TO TAKE NSAIDS BRIDGER TRUJILLO MD Jun 21, 2019 22:56
[2019-06-21] MEDS ORDERED: FLUTICASONE PROP 0.05% NASAL SPRAY 16 GM (FLONASE) NARES PRN (23:00)
[2019-06-21] MEDS: OMEPRAZOLE 20 MG CAP PO SCH (23:07)
[2019-06-22] MEDS: MORPHINE 4 MG/ML 1ML VIAL/SYRINGE (J2270) IV PRN ×3 (05:56→19:01)
[2019-06-22] MEDS: NS 1,000 ML IV SCH ×3 (05:57→22:12)
[2019-06-22 06:00] VITALS: BP 151/63
[2019-06-22 06:05] LABS: HEMATOCRIT 36.9 % (36.0-47.0); HEMOGLOBIN 12.1 g/dl (12.0-15.5); MEAN CORPUSCULAR HEMOGLOBIN 30.4 pg (27.0-33.0); MEAN CORPUSCULAR HGB CONC 32.8 g/dl (32.0-36.5); MEAN CORPUSCULAR VOLUME 92.7 fl (80.0-96.0); PLATELET COUNT, AUTOMATED 213 10^3/uL (150-450); RED BLOOD COUNT 3.98 10^6/uL (4.00-5.40); WHITE BLOOD COUNT 8.1 10^3/uL (4.0-10.0)
--- NOTE | 2019-06-22 06:13 | REP ---
CT ABDOMEN AND PELVIS WITH IV CONTRAST: TECHNIQUE: Axial contrast enhanced images from the lung bases to the pubic symphysis using 100 mL Isovue 370 intravenous contrast material with multiplanar reformations. Liver demonstrates diffuse fatty infiltration. The patient has had a prior cholecystectomy. I do not see significant biliary dilatation. The spleen is normal in size with no definite intrinsic abnormality. The adrenals are unremarkable. Pancreas demonstrates diffuse surrounding inflammation and straining in the peripancreatic fat compatible with pancreatitis. There is no pancreatic duct dilatation. No hydronephrosis is seen of either kidney and there is no gross renal mass. There is no abdominal aortic aneurysm with scattered atherosclerotic calcifications. There is no adenopathy. There is no free air or free fluid. No bowel wall thickening is seen. I see no appendicitis. Once again, there is a 5 cm cystic structure of the left ovary, which is unchanged since the prior CT of 04/13/2019. The urinary bladder is mildly distended and grossly unremarkable. There are degenerative changes of the spine. There is an old mild compression deformity of L2. 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 IMPRESSION: Findings consistent with pancreatitis. No free air or free fluid. Stable left ovarian cyst approximately 5 cm in diameter with no change since the prior study of 04/13/2019. Electronically Signed by Jesus Klein MD 06/22/2019 11:48 P
[2019-06-22 06:25] LABS: ALT/SGPT 25 U/L (12-78); BILIRUBIN,TOTAL 0.2 MG/DL (0.2-1.0); BLOOD UREA NITROGEN 14 MG/DL (7-18); CALCIUM LEVEL 8.6 MG/DL (8.8-10.2); CARBON DIOXIDE LEVEL 32 MEQ/L (21-32); CHLORIDE LEVEL 107 MEQ/L (98-107); CREATININE FOR GFR 0.57 MG/DL (0.55-1.30); GLOMERULAR FILTRATION RATE > 60.0 (>32); GLUCOSE, FASTING 108 MG/DL (70-100); POTASSIUM SERUM 3.7 MEQ/L (3.5-5.1); SODIUM LEVEL 142 MEQ/L (136-145)
[2019-06-22] MEDS: ISOSORBIDE MON. (IMDUR) 30 MG XR TAB PO SCH (09:09)
[2019-06-22] MEDS: OMEPRAZOLE 20 MG CAP PO SCH ×2 (09:09→20:22)
[2019-06-22] MEDS: lisinopriL 20 MG TAB PO SCH (09:10)
[2019-06-22] MEDS: ENOXAPARIN 40 MG/0.4 ML SYRINGE (J1650) SC SCH (09:10)
[2019-06-22] MEDS: INDAPAMIDE 1.25MG TABLET PO SCH (10:38)
[2019-06-22 14:00] VITALS: BP 133/62
--- NOTE | 2019-06-22 19:12 | IPNPDOC ---
Text Note Date of Service The patient was seen on 06/22/19. NOTE Subjective: Patient complains of vague left abdominal pain radiated to her back. Patient denies fever, chills, nausea, vomiting, shortness of breath, diarrhea or dysuria Objective: General: NAD HEENT: PERRLA, EOMI, no JVD Chest: S1-S2 Abdomen: Mildly tender on the left epigastric area, no rebound Extremity: No cyanosis, no swelling Neuro: Nonfocal, cranial nerves from 2-[address] ABDOMEN AND PELVIS WITH IV CONTRAST: TECHNIQUE: Axial contrast enhanced images from the lung bases to the pubic symphysis using 100 mL Isovue 370 intravenous contrast material with multiplanar reformations. Liver demonstrates diffuse fatty infiltration. The patient has had a prior cholecystectomy. I do not see significant biliary dilatation. The spleen is normal in size with no definite intrinsic abnormality. The adrenals are unremarkable. Pancreas demonstrates diffuse surrounding inflammation and straining in the peripancreatic fat compatible with pancreatitis. There is no pancreatic duct dilatation. No hydronephrosis is seen of either kidney and there is no gross renal mass. There is no abdominal aortic aneurysm with scattered atherosclerotic calcifications. There is no adenopathy. There is no free air or free fluid. No bowel wall thickening is seen. I see no appendicitis. Once again, there is a 5 cm cystic structure of the left ovary, which is unchanged since the prior CT of 04/13/2019. The urinary bladder is mildly distended and grossly unremarkable. There are degenerative changes of the spine. There is an old mild compression deformity of L2. 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 IMPRESSION: Findings consistent with pancreatitis. No free air or free fluid. Stable left ovarian cyst approximately 5 cm in diameter with no change since the prior study of 04/13/2019. ASSESSMENT: 78 y/ F with HTN, Cerbral aneurysm s/p clipping, multiple prior episodes of pancreatitis unknown etiology presents with acute pancreatitis. Lipase [id number] showed acute pancreatitis . PLAN: Acute pancreatitis Idiopathic -Clear liquid diet -Continue IVF hydration -Pain management -Zofran 4mg IV q4 PRN. Follow-up with GI in the outpatient settings HTN: continue home Indapamide, Lisnopril, Isosorbide. GERD: PPI daily Seizure ppx for cerebral aneurysm: continue Phenobarbital Dvt ppx: Lovenox VS,Fishbone, I+O VS, Fishbone, I+O Laboratory Tests 06/22/19 05:35 Red Blood Count 3.98 L, Mean Corpuscular Volume 92.7, Mean Corpuscular Hemoglobin 30.4, Mean Corpuscular Hemoglobin Concent 32.8, Red Cell Distribution Width 12.0, Calcium Level 8.6 L, Aspartate Amino Transf (AST/SGOT) 15, Alanine Aminotransferase (ALT/SGPT) 25, Alkaline Phosphatase 70, Total Bilirubin 0.2, Total Protein 6.0 L, Albumin 3.0 L Vital Signs Date Time Temp Pulse Resp B/P (MAP) Pulse Ox O2 Delivery O2 Flow Rate FiO2 06/22/19 19:01 15 06/22/19 14:00 97.5 78 133/62 (85) 93 06/21/19 20:23 Room Air I&O- Last 24 Hours up to 6 AM 06/22/19 06:00 Intake Total 0 ml Balance 0 ml GUERLINE RODRIGUEZ DO Jun 22, 2019 19:12
[2019-06-22] MEDS ORDERED: PERCOCET 5MG/325MG TAB PO PRN (20:15)
[2019-06-22] MEDS: PHENobarbitaL 30 MG TAB PO SCH (20:22)
[2019-06-22 22:00] VITALS: BP 136/88
[2019-06-23] MEDS: NS 1,000 ML IV SCH (03:51)
[2019-06-23 06:00] VITALS: BP 140/84
[2019-06-23 06:04] LABS: BASO % 0.2 % (0.0-1.0); EOS # 0.2 10^3/uL (0.0-0.50); EOS % 2.1 % (0.0-3.0); HEMATOCRIT 33.6 % (36.0-47.0); HEMOGLOBIN 11.2 g/dl (12.0-15.5); LYMPH # 2.1 10^3/uL (1.5-4.5); LYMPH % 23.7 % (24.0-44.0); MEAN CORPUSCULAR HEMOGLOBIN 30.8 pg (27.0-33.0); MEAN CORPUSCULAR HGB CONC 33.3 g/dl (32.0-36.5); MEAN CORPUSCULAR VOLUME 92.3 fl (80.0-96.0); MONO # 0.7 10^3/uL (0.0-0.8); MONO % 7.4 % (0.0-5.0); NEUTROPHILS % 66.2 % (36.0-66.0); PLATELET COUNT, AUTOMATED 197 10^3/uL (150-450); RED BLOOD COUNT 3.64 10^6/uL (4.00-5.40)
[2019-06-23 06:30] LABS: BLOOD UREA NITROGEN 7 MG/DL (7-18); CALCIUM LEVEL 8.1 MG/DL (8.8-10.2); CARBON DIOXIDE LEVEL 28 MEQ/L (21-32); CHLORIDE LEVEL 106 MEQ/L (98-107); CREATININE FOR GFR 0.41 MG/DL (0.55-1.30); GLOMERULAR FILTRATION RATE > 60.0 (>32); GLUCOSE, FASTING 93 MG/DL (70-100); MAGNESIUM LEVEL 1.8 MG/DL (1.8-2.4); SODIUM LEVEL 140 MEQ/L (136-145)
[2019-06-23] MEDS: KCL 40MEQ in NS 1000ML 1,000 ML IV SCH ×2 (06:49→17:09)
[2019-06-23] MEDS: ENOXAPARIN 40 MG/0.4 ML SYRINGE (J1650) SC SCH (10:05)
[2019-06-23] MEDS: OMEPRAZOLE 20 MG CAP PO SCH ×2 (10:06→20:09)
[2019-06-23] MEDS: lisinopriL 20 MG TAB PO SCH (10:06)
[2019-06-23] MEDS: ISOSORBIDE MON. (IMDUR) 30 MG XR TAB PO SCH (10:06)
[2019-06-23] MEDS: INDAPAMIDE 1.25MG TABLET PO SCH (10:06)
[2019-06-23 14:00] VITALS: BP 137/63
--- NOTE | 2019-06-23 14:47 | IPNPDOC ---
Text Note Date of Service The patient was seen on 06/23/19. NOTE Subjective: Patient states that abdominal pain much improved. However after her diet was upgraded to regular patient developed diarrhea 3 times. Patient denies fever, chills, nausea, vomiting, shortness of breath, diarrhea or dysuria Objective: General: NAD HEENT: PERRLA, EOMI, no JVD Chest: S1-S2 Abdomen: Mildly tender on the left epigastric area, no rebound Extremity: No cyanosis, no swelling Neuro: Nonfocal, cranial nerves from 2-12 intact ASSESSMENT: 78 y/ F with HTN, Cerbral aneurysm s/p clipping, multiple prior episodes of pancreatitis unknown etiology presents with acute pancreatitis. Lipase [id number] showed acute pancreatitis. Patient tolerates full liquid diet today. . PLAN: Acute pancreatitis Idiopathic -Full liquid diet. Patient developed 3 bowel movements with louse stool after her diet was upgraded to regular -Continue IVF hydration -Pain management -Zofran 4mg IV q4 PRN. Follow-up with GI in the outpatient settings HTN: continue home Indapamide, Lisnopril, Isosorbide. GERD: PPI daily PT/OT Seizure ppx for cerebral aneurysm: continue Phenobarbital Dvt ppx: Lovenox VS,Fishbone, I+O VS, Fishbone, I+O Laboratory Tests 06/23/19 05:19 Red Blood Count 3.64 L, Mean Corpuscular Volume 92.3, Mean Corpuscular Hemoglobin 30.8, Mean Corpuscular Hemoglobin Concent 33.3, Red Cell Distribution Width 12.0, Neutrophils (%) (Auto) 66.2 H, Lymphocytes (%) (Auto) 23.7 L, Monocytes (%) (Auto) 7.4 H, Eosinophils (%) (Auto) 2.1, Basophils (%) (Auto) 0.2, Neutrophils # (Auto) 6.0, Lymphocytes # (Auto) 2.1, Monocytes # (Auto) 0.7, Eosinophils # (Auto) 0.2, Basophils # (Auto) 0.0, Calcium Level 8.1 L Vital Signs Date Time Temp Pulse Resp B/P (MAP) Pulse Ox O2 Delivery O2 Flow Rate FiO2 06/23/19 10:06 140/84 06/23/19 06:00 98.5 95 17 98 06/21/19 20:23 Room Air I&O- Last 24 Hours up to 6 AM 06/23/19 06:00 Intake Total 2320 ml Output Total 2600 ml Balance -280 ml GUERLINE RODRIGUEZ DO Jun 23, 2019 14:47
[2019-06-23] MEDS: PHENobarbitaL 30 MG TAB PO SCH (20:10)
[2019-06-23 22:00] VITALS: BP 112/91
[2019-06-24] MEDS: KCL 40MEQ in NS 1000ML 1,000 ML IV SCH (02:56)
[2019-06-24 05:51] LABS: BASO % 0.3 % (0.0-1.0); EOS # 0.2 10^3/uL (0.0-0.50); EOS % 3.3 % (0.0-3.0); HEMATOCRIT 33.3 % (36.0-47.0); HEMOGLOBIN 11.1 g/dl (12.0-15.5); LYMPH # 1.8 10^3/uL (1.5-4.5); LYMPH % 26.6 % (24.0-44.0); MEAN CORPUSCULAR HEMOGLOBIN 31.6 pg (27.0-33.0); MEAN CORPUSCULAR HGB CONC 33.3 g/dl (32.0-36.5); MEAN CORPUSCULAR VOLUME 94.9 fl (80.0-96.0); MONO # 0.6 10^3/uL (0.0-0.8); NEUTROPHILS # 4.2 10^3/uL (1.8-7.7); NEUTROPHILS % 61.2 % (36.0-66.0); PLATELET COUNT, AUTOMATED 184 10^3/uL (150-450); RED BLOOD COUNT 3.51 10^6/uL (4.00-5.40); WHITE BLOOD COUNT 6.9 10^3/uL (4.0-10.0)
[2019-06-24 06:00] VITALS: BP 126/74
[2019-06-24 06:14] LABS: BLOOD UREA NITROGEN 4 MG/DL (7-18); CALCIUM LEVEL 8.6 MG/DL (8.8-10.2); CARBON DIOXIDE LEVEL 28 MEQ/L (21-32); CHLORIDE LEVEL 110 MEQ/L (98-107); CREATININE FOR GFR 0.47 MG/DL (0.55-1.30); GLOMERULAR FILTRATION RATE > 60.0 (>32); GLUCOSE, FASTING 108 MG/DL (70-100); MAGNESIUM LEVEL 1.8 MG/DL (1.8-2.4); SODIUM LEVEL 143 MEQ/L (136-145)
[2019-06-24] MEDS: ENOXAPARIN 40 MG/0.4 ML SYRINGE (J1650) SC SCH (08:29)
[2019-06-24] MEDS: lisinopriL 20 MG TAB PO SCH (08:30)
[2019-06-24 08:32] VITALS: BP 126/74
[2019-06-24] MEDS: ISOSORBIDE MON. (IMDUR) 30 MG XR TAB PO SCH (08:32)
[2019-06-24] MEDS: OMEPRAZOLE 20 MG CAP PO SCH (08:32)
[2019-06-24] MEDS: INDAPAMIDE 1.25MG TABLET PO SCH (08:34)
[2019-06-24 14:00] VITALS: BP 136/62
--- NOTE | 2019-06-24 18:32 | DS.PDOC ---
Discharge Summary General Date of Admission Jun 23, 2019 at 07:47 Date of Discharge 06/24/19 Primary Care Physician: Dereck Navarro MD Attending Physician: GUERLINE RODRIGUEZ DO Discharge Summary PROCEDURES PERFORMED DURING STAY: None ADMITTING DIAGNOSES: Acute pancreatitis HTN GERD DISCHARGE DIAGNOSES: Acute pancreatitis HTN GERD COMPLICATIONS/CHIEF COMPLAINT: Acute Pancreatitis. HISTORY OF PRESENT ILLNESS: 78 y/ F with HTN, Cerbral aneurysm s/p clipping, m ultiple prior episodes of pancreatitis (last admit 03/2019) presents with complaints of sharp, central abdominal pain, starting at approximately 2 pm associated with nausea without vomiting and diaphoresis. She states this is similar to previous episodes of pancreatitis. No fevers, chills, chest pain, palpitations, vomiting, diarrhea, focal weakness, falls, numbness/tingling, LE edema, recent EtOH use. Patient and daughter who are at bedside states after last discharge they went to see Dr. Witt at [facility] in [place] who performed EGD and colonoscopy with no etiology found for prior episodes of pancreatitis. Patient was found to have elevated lipase level and CAT scan was positive for acute pancreatitis. HOSPITAL COURSE: During hospital stay the following issues were addressed Acute pancreatitis -Patient received diet nothing by mouth for first 12 hours, then diet was upgraded -IVF hydration -Pain control with Morphine -Zofran HTN: continue home Indapamide, Lisnopril, Isosorbide. GERD: PPI daily DISCHARGE MEDICATIONS: Please see below. ALLERGIES: Please see below. PHYSICAL EXAMINATION ON DISCHARGE: VITAL SIGNS: Please see below. GEN: elderly female, moderate distress due to pain HEENT: EOMI, MMM, neck supple Cardio: S1/S2 present, RRR Lungs: CTA b/l, no w/r/r Abd: tender to palpation in periumbilical area Ext: no focal edema, full ROM, strength grossly intact Neuro: A&Ox3, no gross deficits Skin: warm, dry, intact Psych: normal mood and affect LABORATORY DATA: Please see below. IMAGING: CT ABDOMEN AND PELVIS WITH IV CONTRAST: TECHNIQUE: Axial contrast enhanced images from the lung bases to the pubic symphysis using 100 mL Isovue 370 intravenous contrast material with multiplanar reformations. Liver demonstrates diffuse fatty infiltration. The patient has had a prior cholecystectomy. I do not see significant biliary dilatation. The spleen is normal in size with no definite intrinsic abnormality. The adrenals are unremarkable. Pancreas demonstrates diffuse surrounding inflammation and straining in the peripancreatic fat compatible with pancreatitis. There is no pancreatic duct dilatation. No hydronephrosis is seen of either kidney and there is no gross renal mass. There is no abdominal aortic aneurysm with scattered atherosclerotic calcifications. There is no adenopathy. There is no free air or free fluid. No bowel wall thickening is seen. I see no appendicitis. Once again, there is a 5 cm cystic structure of the left ovary, which is unchanged since the prior CT of 04/13/2019. The urinary bladder is mildly distended and grossly unremarkable. There are degenerative changes of the spine. There is an old mild compression deformity of L2. 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 IMPRESSION: Findings consistent with pancreatitis. No free air or free fluid. Stable left ovarian cyst approximately 5 cm in diameter with no change since the prior study of 04/13/2019. PROGNOSIS: Favorable ACTIVITY: As tolerated DIET: regular DISCHARGE PLAN: Follow-up with lead miner in 1 week DISPOSITION: 01 Home, Self-Care. DISCHARGE INSTRUCTIONS: 1. Follow-up with PCP in one week DISCHARGE CONDITION: Stable]. TIME SPENT ON DISCHARGE: Greater than 20 minutes. Vital Signs/I&Os Vital Signs Date Time Temp Pulse Resp B/P (MAP) Pulse Ox O2 Delivery O2 Flow Rate FiO2 06/24/19 14:00 98.3 77 17 136/62 (86) 96 06/21/19 20:23 Room Air I&O- Last 24 Hours up to 6 AM 06/24/19 06:00 Intake Total 470 ml Output Total 2550 ml Balance -2080 ml Laboratory Data Labs 24H Laboratory Tests 2 06/24/19 05:30: Immature Granulocyte % (Auto) 0.6, White Blood Count 6.9, Red Blood Count 3.51L, Hemoglobin 11.1L, Hematocrit 33.3L, Mean Corpuscular Volume 94.9, Mean Corpuscular Hemoglobin 31.6, Mean Corpuscular Hemoglobin Concent 33.3, Red Cell Distribution Width 12.0, Platelet Count 184, Neutrophils (%) (Auto) 61.2, Lymphocytes (%) (Auto) 26.6, Monocytes (%) (Auto) 8.0H, Eosinophils (%) (Auto) 3.3H, Basophils (%) (Auto) 0.3, Neutrophils # (Auto) 4.2, Lymphocytes # (Auto) 1.8, Monocytes # (Auto) 0.6, Eosinophils # (Auto) 0.2, Basophils # (Auto) 0.0, Nucleated Red Blood Cells % (auto) 0.0, Anion Gap 5L, Glomerular Filtration Rate > 60.0, Blood Urea Nitrogen 4L, Creatinine 0.47L, Sodium Level 143, Potassium Level 4.0#, Chloride Level 110H, Carbon Dioxide Level 28, Calcium Level 8.6L, Magnesium Level 1.8 CBC/BMP Laboratory Tests 06/24/19 05:30 Red Blood Count 3.51 L, Mean Corpuscular Volume 94.9, Mean Corpuscular Hemoglobin 31.6, Mean Corpuscular Hemoglobin Concent 33.3, Red Cell Distribution Width 12.0, Neutrophils (%) (Auto) 61.2, Lymphocytes (%) (Auto) 26.6, Monocytes (%) (Auto) 8.0 H, Eosinophils (%) (Auto) 3.3 H, Basophils (%) (Auto) 0.3, Neutrophils # (Auto) 4.2, Lymphocytes # (Auto) 1.8, Monocytes # (Auto) 0.6, Eosinophils # (Auto) 0.2, Basophils # (Auto) 0.0, Calcium Level 8.6 L Microbiology Microbiology 06/21/19 Blood Culture - Preliminary, Resulted No Growth after 72 hours. All specime... 06/21/19 Blood Culture - Preliminary, Resulted No Growth after 72 hours. All specime... Discharge Medications Scheduled Calcium Carbonate (Calcium) 500 Mg Tab.chew, 500 MG PO BID, (Reported) Indapamide (Indapamide) 1.25 Mg Tablet, 1.25 MG PO DAILY, (Reported) Isosorbide Mononitrate (Isosorbide Mononitrate ER) 30 Mg Tab.er.24h, 30 MG PO DAILY, (Reported) Lisinopril (Lisinopril) 20 Mg Tablet, 20 MG PO DAILY, (Reported) Multivitamin (Multivitamins) 1 Each Capsule, 1 CAP PO DAILY, (Reported) Omeprazole (Omeprazole) 20 Mg Capsule.dr, 20 MG PO BID, (Reported) Phenobarbital (Phenobarbital) 97.2 Mg Tablet, 97.2 MG PO QHS, (Reported) Scheduled PRN Acetaminophen (Acetaminophen) 500 Mg Tablet, 1,000 MG PO Q6H PRN for PAIN, (Reported) Fluticasone Propionate (Flonase Allergy Relief) 9.9 Ml [place].susp, 2 SPRAY NARES DAILY PRN for ALLERGIES, (Reported) Menthol (Bengay) 5% Gel..gram., 1 APLCT TOP BID PRN for PAIN, (Reported) APPLY TO RIGHT FOOT Allergies Coded Allergies: aspirin (Verified Allergy, Severe, was told not to take, 06/21/19) HAD A BRAIN ANEURYSM AND WAS TOLD NOT TO TAKE NSAIDS GUERLINE RODRIGUEZ DO Jun 24, 2019 18:32
== END 2019-06-24 14:51 | disposition home or self-care (01) | DRG 440 ==
LOC: M ED 15:02 → M ED INP 15:03 → M MSPAV 20:48 → OBSVTOIN 06-23 07:47
PROVIDERS: ADMIT Internal Medicine; ATTEND Internal Medicine
DX: K85.00 Idiopathic acute pancreatitis without necrosis or infection (principal); I10 Essential (primary) hypertension; K21.9 Gastro-esophageal reflux disease without esophagitis; Z79.899 Other long term (current) drug therapy; Z88.6 Allergy status to analgesic agent

== ENCOUNTER → 2019-07-02 | Outpatient (REF) | payer MEDICARE, OTHER ==
[~2019-07-02] MED LIST changes: +ACET-683 PO; +BENGGEL2 TOP
[2019-07-02 12:58] LABS: CHOLESTEROL RISK RATIO 3.962 (<5)
[2019-07-06 00:06] LABS: ANTINUCLEAR ANTIBODIES DIRECT Negative (Negative)
== END ==
LOC: M LABDRAW1 11:54
PROVIDERS: ATTEND Specialist
DX: K85.90 Acute pancreatitis without necrosis or infection, unspecified (principal); K86.2 Cyst of pancreas

== ENCOUNTER → 2019-11-05 | Outpatient (CLI) | payer MEDICARE, BC, OTHER ==
[2019-11-05 11:23] LABS: BLOOD UREA NITROGEN 17 MG/DL (7-18); CREATININE FOR GFR 0.61 MG/DL (0.55-1.30); GLOMERULAR FILTRATION RATE > 60.0 (>32); PHENOBARBITAL LEVEL 15.5 UG/ML (15.0-40.0)
== END ==
LOC: M LAB 09:53
PROVIDERS: ATTEND Physician Assistant Medical
DX: G40.89 Other seizures (principal)

== ENCOUNTER → 2020-06-26 | Outpatient (CLI) | payer MEDICARE, BC, OTHER | LOC: M WUC 08:43 | PROVIDERS: ATTEND Physician Assistant Medical | DX: G40.909 Epilepsy, unspecified, not intractable, without status epilepticus (principal) ==

== ENCOUNTER → 2020-08-24 | Outpatient (CLI) | payer MEDICARE, BC, OTHER ==
[2020-08-24 12:14] LABS: BLOOD UREA NITROGEN 16 MG/DL (7-18); CREATININE FOR GFR 0.67 MG/DL (0.55-1.30); GLOMERULAR FILTRATION RATE > 60.0 (>32)
== END ==
LOC: M WUC 09:43
PROVIDERS: ATTEND Specialist
DX: K86.2 Cyst of pancreas (principal)

== ENCOUNTER → 2020-11-09 | Outpatient (CLI) | payer MEDICARE, BC, OTHER ==
[~2020-11-09] MED LIST changes: +ISOVUE-370 76% 100ML VIAL As Ordered ONE
--- NOTE | 2020-11-09 11:00 | REPVR ---
PROCEDURE INFORMATION: Exam: CT Angiography Head With Contrast Exam date and time: 11/09/2020 10:25 AM Age: 80 years old Clinical indication: Condition or disease; Aneurysm, cerebral; Prior surgery; Surgery date: 6+ months; Additional info: Cerbral aneurysm, nonruptured TECHNIQUE: Imaging protocol: Computed tomography angiography of the head with intravenous contrast. 3D rendering (Not supervised by radiologist): MIP and/or 3D reconstructed images were created by the technologist. Radiation optimization: All CT scans at this facility use at least one of these dose optimization techniques: automated exposure control; mA and/or kV adjustment per patient size (includes targeted exams where dose is matched to clinical indication); or iterative reconstruction. Contrast material: ISOVUE 370; Contrast volume: 75 ml; Contrast route: INTRAVENOUS (IV); COMPARISON: CT ANGIO HEAD 11/10/2019 10:03 AM FINDINGS: ANTERIOR CIRCULATION: Right internal carotid artery: Mild atherosclerosis of the cavernous segment of the right internal carotid artery. No aneurysm. No occlusion. Right middle cerebral artery: No occlusion or significant stenosis. Stable aneurysm measuring 3.5 mm at the right M1/M2 trifurcation. No occlusion. No significant stenosis. Right anterior cerebral artery: Hypoplastic right A1 segment. Right A2 segment is unremarkable. Left internal carotid artery: Minimal atherosclerosis of the cavernous segment of the left internal carotid artery. No occlusion. No aneurysm. Left middle cerebral artery: Left M1 segment is unremarkable. Multiple surgical coils are seen in the left M1/M2 junction extending superiorly in the left inferior frontal lobe likely aneurysmal clipping . Distal M2 and M3 segments are patent. No residual aneurysm is seen. Left anterior cerebral artery: Unremarkable. No occlusion or significant stenosis. No aneurysm. POSTERIOR CIRCULATION: Right vertebral artery: Unremarkable. No occlusion or significant stenosis. No aneurysm. Left vertebral artery: Unremarkable. No occlusion or significant stenosis. No aneurysm. Basilar artery: Unremarkable. No occlusion or significant stenosis. No aneurysm. Right posterior cerebral artery: Unremarkable. No occlusion or significant stenosis. No aneurysm. Left posterior cerebral artery: Unremarkable. No occlusion or significant stenosis. No aneurysm. Brain: Stable enhancing large left tentorial leaf with supratentorial and infratentorial component meningioma and another right meningioma adjacent to the l right brachium pontis. Large area of encephalomalacia in the left centrum semiovale extending into the left frontotemporal lobe similar to previous study from prior craniectomy and postsurgical changes. Cerebral ventricles: No ventriculomegaly. Bones/joints: Left fronto temporal craniectomy changes. Soft tissues: Unremarkable. IMPRESSION: Stable aneurysm measuring 3.5 mm at the right M1/M2 trifurcation. No occlusion. No significant stenosis. Left M1 segment is unremarkable. Multiple surgical coils are seen in the left M1/M2 junction extending superiorly in the left inferior frontal lobe likely aneurysmal clipping . Distal M2 and M3 segments are patent. No residual aneurysm is seen. Two large meningiomas, stable from prior examination. Status post left frontotemporal craniectomy with large low-attenuation area similar to previous study. Electronically signed by: Rosy Ervin On 11/09/2020 10:59:50 AM
== END ==
LOC: M RAD 09:48
PROVIDERS: ATTEND Physician Assistant Medical
DX: I67.1 Cerebral aneurysm, nonruptured (principal); D32.0 Benign neoplasm of cerebral meninges
CPT/HCPCS: 70496; Q9967

== ENCOUNTER → 2021-02-27 | Outpatient (CLI) | payer MEDICARE, BC ==
[~2021-02-27] MED LIST changes: +ISOS1TAB35 PO; -ISOS30TA4 PO; -ISOVUE-370 76% 100ML VIAL As Ordered ONE; -LISI-538 PO; +LISI20TA33 PO
--- NOTE | 2021-02-27 13:48 | REPMRS ---
Patient History The patient states she had a clinical breast exam in 01/2021. Family history of ovarian cancer at age 47 in daughter. Took hormonal contraceptives for 3 months. Took unspecified hormones for 2 years. Patient states no breast complaints today. Patient has signed MRS History Sheet. Digital Woman Screen Mammo: February 27, 2021 - Exam #: [id number] Bilateral CC and MLO view(s) were taken. Technologist: Helen Rollins, Technologist Prior study comparison: July 30, 2018, bilateral digital woman screen mammo performed at [facility]. April 15, 2017, bilateral digital mammo screening bilat, performed at [facility]. FINDINGS: There are scattered fibroglandular densities. Screening. Digital screening (2D) mammography was performed bilaterally in the CC and MLO projections. Additionally, breast tomosynthesis (3D mammography) was performed bilaterally in the CC and MLO projections. Todays exam was compared to the prior exams(s). By history, the patient has no complaints of a palpable breast abnormality or other significant breast complaints. The breasts are unchanged in size and shape. There are no natalie-soft tissue densities or spiculated masses. There is no internal architectural distortion. There are no suspicious natalie-calcific clusters. Skin thickening or nipple retraction is not present. IMPRESSION: BI-RADS Category 2- Benign Findings(s). There is no evidence of malignant alteration of the breasts. Followup examination recommended in one year. The Volpara volumetric breast density category is B, there are scattered areas of fibroglandular density. This mammogram was read with the assistance of [employer],an FDA approved computer aided detection system for mammography. The lifetime Tyrer-Cuzick score is 0.7 % Negative x-ray reports should not delay surgical consultation if a dominant or clinically suspicious mass is present. Not all breast cancers can be identified by mammography. Therefore, we recommend that you continue to perform regular breast self-examination and physical examination and then promptly contact your physician of any concerns or changes. Adenosis and dense breasts may obscure an underlying neoplasm. Assessment: BI-RADS/ACR category 2 mammogram. Benign Findings. Recommendation Routine screening mammogram of both breasts in 1 year. Electronically Signed By: Ryan Joel DO 02/27/21 [id number]
== END ==
LOC: M WHC 12:49
PROVIDERS: ATTEND Nurse Practitioner
DX: Z12.31 Encounter for screening mammogram for malignant neoplasm of breast (principal); Z80.41 Family history of malignant neoplasm of ovary

== ENCOUNTER → 2021-05-04 | Outpatient (CLI) | payer MEDICARE, BC ==
[~2021-05-04] MED LIST changes: +OMEP-173 PO; -OMEP-218 PO
== END ==
LOC: M WUC 10:50
PROVIDERS: ATTEND Physician Assistant Medical
DX: G40.89 Other seizures (principal)

== ENCOUNTER → 2021-10-31 | Outpatient (CLI) | payer MEDICARE, BC ==
[~2021-10-31] MED LIST changes: -OMEP-173 PO; +OMEP-218 PO
== END ==
LOC: M WUC 10:00
PROVIDERS: ATTEND Physician Assistant Medical
DX: R56.9 Unspecified convulsions (principal)

== ENCOUNTER → 2021-12-18 | Outpatient (CLI) | payer MEDICARE, BC, OTHER ==
[~2021-12-18] MED LIST changes: +ISOVUE-370 76% 100ML VIAL As Ordered ONE; +OMEP-173 PO; -OMEP-218 PO
== END ==
LOC: M RAD 08:44
PROVIDERS: ATTEND Physician Assistant Medical
DX: I67.1 Cerebral aneurysm, nonruptured (principal); D32.0 Benign neoplasm of cerebral meninges
CPT/HCPCS: 70496; Q9967

== ENCOUNTER → 2022-02-11 | Outpatient (CLI) | payer MEDICARE, BC, OTHER ==
[~2022-02-11] MED LIST changes: -ISOVUE-370 76% 100ML VIAL As Ordered ONE
== END ==
LOC: M WUC 10:13
PROVIDERS: ATTEND Physician Assistant
DX: M25.771 Osteophyte, right ankle (principal)

== ENCOUNTER → 2022-06-04 | Outpatient (CLI) | payer MEDICARE, BC, OTHER ==
[~2022-06-04] MED LIST changes: +INDA1.253 PO; -INDA125TA PO
== END ==
LOC: M WHC 14:16
PROVIDERS: ATTEND Physician Assistant
DX: Z12.31 Encounter for screening mammogram for malignant neoplasm of breast (principal)

== ENCOUNTER → 2023-04-11 | Outpatient (CLI) | payer MEDICARE, BC, OTHER ==
[2023-04-11 10:02] LABS: HEMATOCRIT 41.1 % (36.0-47.0); HEMOGLOBIN 13.4 g/dl (12.0-15.5); MEAN CORPUSCULAR HEMOGLOBIN 30.1 pg (27.0-33.0); MEAN CORPUSCULAR HGB CONC 32.6 g/dl (32.0-36.5); MEAN CORPUSCULAR VOLUME 92.4 fl (80.0-96.0); PLATELET COUNT, AUTOMATED 230 10^3/uL (150-450); RED BLOOD COUNT 4.45 10^6/uL (4.00-5.40); WHITE BLOOD COUNT 8.9 10^3/uL (4.0-10.0)
[2023-04-11 10:28] LABS: ALBUMIN 3.9 G/DL (3.2-5.2); ALKALINE PHOSPHATASE 91 U/L (46-116); ALT/SGPT 27 U/L (7.0-40); AST/SGOT 22 U/L (<34); BILIRUBIN,TOTAL 0.4 MG/DL (0.3-1.2); BLOOD UREA NITROGEN 16 MG/DL (9-23); CARBON DIOXIDE LEVEL 28 MMOL/L (20-31); CHLORIDE LEVEL 103 MMOL/L (98-107); CHOLESTEROL LEVEL 204 MG/DL (<200); CHOLESTEROL RISK RATIO 3.27 (<5); CREATININE FOR GFR 0.57 MG/DL (0.55-1.30); GLOMERULAR FILTRATION RATE > 60.0 (>32); GLUCOSE, FASTING 122 MG/DL (74-106); HDL CHOLESTEROL 62.3 MG/DL (>40); LDL CHOLESTEROL 121.7 MG/DL (<100); NON-HDL-C 141.7 MG/DL; POTASSIUM SERUM 4.3 MMOL/L (3.5-5.1); SODIUM LEVEL 138 MMOL/L (136-145); TOTAL PROTEIN 6.3 G/DL (5.7-8.2); TRIGLYCERIDES LEVEL 100 MG/DL (<150)
[2023-04-11 10:29] LABS: THYROID STIMULATING HORMONE 3.089 uIU/ML (0.55-4.78); TOTAL 25(OH) VITAMIN D 46.3 NG/ML (20.0-100.0)
== END ==
LOC: M WUC 08:14
PROVIDERS: ATTEND Physician Assistant
DX: I10 Essential (primary) hypertension (principal); E78.5 Hyperlipidemia, unspecified; E55.9 Vitamin D deficiency, unspecified

== ENCOUNTER → 2023-12-16 | Outpatient (CLI) | payer MEDICARE, BC, OTHER ==
[2023-12-16 10:19] LABS: HEMOGLOBIN 14.4 g/dl (12.0-15.5); MEAN CORPUSCULAR HEMOGLOBIN 30.3 pg (27.0-33.0); MEAN CORPUSCULAR HGB CONC 33.5 g/dl (32.0-36.5); MEAN CORPUSCULAR VOLUME 90.3 fl (80.0-96.0); PLATELET COUNT, AUTOMATED 248 10^3/uL (150-450); RED BLOOD COUNT 4.76 10^6/uL (4.00-5.40)
[2023-12-16 10:37] LABS: HEMOGLOBIN A1c 6.3 % (4.0-6.0)
[2023-12-16 10:48] LABS: ALBUMIN 3.9 G/DL (3.2-5.2); ALKALINE PHOSPHATASE 107 U/L (46-116); ALT/SGPT 24 U/L (7.0-40); AST/SGOT 25 U/L (<34); BILIRUBIN,TOTAL 0.3 MG/DL (0.3-1.2); BLOOD UREA NITROGEN 14 MG/DL (9-23); CALCIUM LEVEL 9.5 MG/DL (8.3-10.6); CARBON DIOXIDE LEVEL 29 MMOL/L (20-31); CHLORIDE LEVEL 105 MMOL/L (98-107); CHOLESTEROL LEVEL 221 MG/DL (<200); CHOLESTEROL RISK RATIO 3.84 (<5); CREATININE FOR GFR 0.49 MG/DL (0.55-1.30); GLOMERULAR FILTRATION RATE > 60.0 (>32); GLUCOSE, FASTING 116 MG/DL (74-106); HDL CHOLESTEROL 57.5 MG/DL (>40); LDL CHOLESTEROL 137.7 MG/DL (<100); NON-HDL-C 163.5 MG/DL; POTASSIUM SERUM 4.4 MMOL/L (3.5-5.1); SODIUM LEVEL 142 MMOL/L (136-145); TOTAL PROTEIN 6.8 G/DL (5.7-8.2); TRIGLYCERIDES LEVEL 129 MG/DL (<150)
== END ==
LOC: M WUC 08:04
PROVIDERS: ATTEND Physician Assistant
DX: H90.2 Conductive hearing loss, unspecified (principal); I10 Essential (primary) hypertension; E78.5 Hyperlipidemia, unspecified; R73.01 Impaired fasting glucose

== ENCOUNTER → 2024-04-02 | Outpatient (REF) | payer MEDICARE, BC, OTHER | LOC: M LAB REF 19:05 | PROVIDERS: ATTEND Physician Assistant | DX: R73.03 Prediabetes (principal) ==

== ENCOUNTER → 2024-06-23 | Outpatient (CLI) | payer MEDICARE, BC, OTHER ==
[2024-06-23 19:11] LABS: BASO % 0.3 % (0.0-1.0); EOS # 0.1 10^3/uL (0.0-0.5); EOS % 1.2 % (0.0-3.0); HEMATOCRIT 42.5 % (36.0-47.0); HEMOGLOBIN 14.1 g/dl (12.0-15.5); LYMPH # 2.5 10^3/uL (1.5-5.0); LYMPH % 26.7 % (24.0-44.0); MEAN CORPUSCULAR HEMOGLOBIN 30.6 pg (27.0-33.0); MEAN CORPUSCULAR HGB CONC 33.2 g/dl (32.0-36.5); MEAN CORPUSCULAR VOLUME 92.2 fl (80.0-96.0); MONO # 0.7 10^3/uL (0.0-0.8); MONO % 7.3 % (2.0-8.0); NEUTROPHILS # 6.1 10^3/uL (1.5-8.5); NEUTROPHILS % 64.2 % (36.0-66.0); PLATELET COUNT, AUTOMATED 258 10^3/uL (150-450); RED BLOOD COUNT 4.61 10^6/uL (4.00-5.40); WHITE BLOOD COUNT 9.5 10^3/uL (4.0-10.0)
[2024-06-23 19:17] LABS: PHENOBARBITAL LEVEL 15.7 UG/ML (15.0-40.0)
[2024-06-23 19:20] LABS: ALBUMIN 4.2 G/DL (3.2-5.2); ALKALINE PHOSPHATASE 100 U/L (46-116); ALT/SGPT 29 U/L (7.0-40); AST/SGOT 18 U/L (<34); BILIRUBIN,TOTAL 0.2 MG/DL (0.3-1.2); BLOOD UREA NITROGEN 14 MG/DL (9-23); CALCIUM LEVEL 9.9 MG/DL (8.3-10.6); CARBON DIOXIDE LEVEL 28 MMOL/L (20-31); CHLORIDE LEVEL 106 MMOL/L (98-107); CREATININE FOR GFR 0.51 MG/DL (0.55-1.30); GLOMERULAR FILTRATION RATE > 60.0 (>32); GLUCOSE, FASTING 88 MG/DL (74-106); POTASSIUM SERUM 4.2 MMOL/L (3.5-5.1); SODIUM LEVEL 140 MMOL/L (136-145); TOTAL PROTEIN 7.1 G/DL (5.7-8.2)
== END ==
LOC: M WUC 14:02
PROVIDERS: ATTEND Psychiatry & Neurology Neurology
DX: G40.89 Other seizures (principal)

== ENCOUNTER 2024-07-10 14:20 | Emergency (ER) | payer MEDICARE, BC, OTHER ==
[~2024-07-10] VITALS: Ht 152.4 cm; Wt 61.2 kg
[2024-07-10 15:53] LABS: BASO % 0.2 % (0.0-1.0); EOS % 0.3 % (0.0-3.0); HEMOGLOBIN 13.7 g/dl (12.0-15.5); LYMPH # 1.8 10^3/uL (1.5-5.0); LYMPH % 11.5 % (24.0-44.0); MEAN CORPUSCULAR HEMOGLOBIN 31.4 pg (27.0-33.0); MEAN CORPUSCULAR HGB CONC 34.3 g/dl (32.0-36.5); MEAN CORPUSCULAR VOLUME 91.5 fl (80.0-96.0); MONO # 0.6 10^3/uL (0.0-0.8); MONO % 4.2 % (2.0-8.0); NEUTROPHILS # 12.5 10^3/uL (1.5-8.5); NEUTROPHILS % 82.2 % (36.0-66.0); PLATELET COUNT, AUTOMATED 235 10^3/uL (150-450); RED BLOOD COUNT 4.37 10^6/uL (4.00-5.40); WHITE BLOOD COUNT 15.2 10^3/uL (4.0-10.0)
[2024-07-10 16:21] VITALS: BP 138/98; TEMP 96.9; O2SAT 94
[2024-07-10] MEDS ORDERED: VALS1TAB68 PO (22:38)
[2024-07-10] MEDS ORDERED: CENT1TAB PO (22:38)
[2024-07-10] MEDS ORDERED: AMLO1TAB25 PO (22:38)
[2024-07-10] MEDS ORDERED: MENT120C TOP (22:38)
== END 2024-07-10 16:30 | disposition home or self-care (01) ==
LOC: M ED 14:20 → EDBD 14:20 → M ED 16:30
DX: S30.0XXA Contusion of lower back and pelvis, initial encounter (principal); R19.5 Other fecal abnormalities; W19.XXXA Unspecified fall, initial encounter; M85.89 Other specified disorders of bone density and structure, multiple sites; I10 Essential (primary) hypertension; Z88.6 Allergy status to analgesic agent; Y92.002 Bathroom of unspecified non-institutional (private) residence as the place of occurrence of the external cause; Y93.89 Activity, other specified; Y99.9 Unspecified external cause status; Z79.899 Other long term (current) drug therapy

== ENCOUNTER 2024-07-10 16:59 | Observation (INO) | payer MEDICARE, BC ==
[~2024-07-10] VITALS: Ht 152.4 cm; Wt 56.2 kg
[2024-07-10] MEDS ORDERED: ISOVUE-370 76% 100ML VIAL As Ordered ONE (17:15)
[2024-07-10 17:28] LABS: ABG BASE EXCESS -2.1 (-2.0-2.0); ABG HCO3 21.6 MMOL/L (22.0-26.0); ABG PARTIAL PRESSURE CO2 33.9 mmHg (35.0-45.0); ABG PARTIAL PRESSURE O2 86.5 mmHg (75.0-100.0); ABG STANDARD HCO3 22.7 MMOL/L. (22.0-26.0); ABG TOTAL CO2 22.7 MMOL/L (23.0-31.0); ABG pH (ARTERIAL) 7.423 UNITS (7.350-7.450)
[2024-07-10 17:30] VITALS: O2SAT 90
[2024-07-10 17:42] LABS: BASO # 0.1 10^3/uL (0.0-0.2); BASO % 0.3 % (0.0-1.0); EOS % 0.1 % (0.0-3.0); HEMATOCRIT 39.6 % (36.0-47.0); HEMOGLOBIN 13.3 g/dl (12.0-15.5); LYMPH % 14.3 % (24.0-44.0); MEAN CORPUSCULAR HEMOGLOBIN 31.1 pg (27.0-33.0); MEAN CORPUSCULAR HGB CONC 33.6 g/dl (32.0-36.5); MEAN CORPUSCULAR VOLUME 92.7 fl (80.0-96.0); MONO # 0.9 10^3/uL (0.0-0.8); NEUTROPHILS # 17.1 10^3/uL (1.5-8.5); NEUTROPHILS % 80.2 % (36.0-66.0); PLATELET COUNT, AUTOMATED 260 10^3/uL (150-450); RED BLOOD COUNT 4.27 10^6/uL (4.00-5.40); WHITE BLOOD COUNT 21.3 10^3/uL (4.0-10.0)
[2024-07-10 17:45] VITALS: O2SAT 92
[2024-07-10 18:00] VITALS: BP 129/60; O2SAT 91
[2024-07-10 18:05] LABS: INR 1.05; PARTIAL THROMBOPLASTIN TIME 26.5 SECONDS (24.8-34.2); PROTHROMBIN TIME 13.4 SECONDS (12.5-14.5)
[2024-07-10 18:06] LABS: LIPASE 38 U/L (12-53)
[2024-07-10] MEDS: ACETAMINOPHEN *IV* 1,000 MG in IV 1 EA IV ONE (18:07)
[2024-07-10] MEDS: NS 1,000 ML IV ONE (18:07)
[2024-07-10 18:09] LABS: ALBUMIN 4.1 G/DL (3.2-5.2); ALKALINE PHOSPHATASE 91 U/L (46-116); ALT/SGPT 31 U/L (7.0-40); AST/SGOT 29 U/L (<34); BILIRUBIN,DIRECT 0.1 MG/DL (<0.4); BILIRUBIN,TOTAL 0.4 MG/DL (0.3-1.2); BLOOD UREA NITROGEN 13 MG/DL (9-23); CALCIUM LEVEL 9.6 MG/DL (8.3-10.6); CARBON DIOXIDE LEVEL 26 MMOL/L (20-31); CHLORIDE LEVEL 104 MMOL/L (98-107); CK-MB VALUE MASS 7.1 NG/ML (<3.6); CPK CREATINE PHOSPHOKINASE 202 U/L (34-145); CREATININE FOR GFR 0.61 MG/DL (0.55-1.30); GLOMERULAR FILTRATION RATE > 60.0 (>32); GLUCOSE, FASTING 167 MG/DL (74-106); MB/CK RELATIVE INDEX 3.51 (< OR =4); POTASSIUM SERUM 3.2 MMOL/L (3.5-5.1); SODIUM LEVEL 139 MMOL/L (136-145); TOTAL PROTEIN 6.8 G/DL (5.7-8.2)
[2024-07-10 18:15] VITALS: BP 126/60; O2SAT 92
[2024-07-10 18:30] VITALS: O2SAT 91
[2024-07-10] MEDS: PANTOPRAZOLE 40MG VIAL IV ONE (19:00)
[2024-07-10] MEDS: cefTRIAXone SOD 2 GM in D5W MINI-BAG PLUS 50 ML IV ONE (19:19)
[2024-07-10] MEDS: PHENobarbitaL 30 MG TAB PO ONE (22:10)
[2024-07-10] MEDS ORDERED: AMLO1TAB25 PO (22:38)
[2024-07-10] MEDS ORDERED: VALS1TAB68 PO (22:38)
[2024-07-10] MEDS ORDERED: CENT1TAB PO (22:38)
[2024-07-10] MEDS ORDERED: MENT120C TOP (22:38)
[2024-07-10] MEDS ORDERED: HOME MED LIST COMPLETE! XX SCH (22:40)
[2024-07-11] VITALS (10 sets, daily range): BP systolic 134–178; BP diastolic 58–73; TEMP 97.1–99.3; O2SAT 93–98
[2024-07-11] MEDS ORDERED: **hydrALAZINE** 10 MG TAB PO ONE (00:45)
[2024-07-11] MEDS: ACETAMINOPHEN TAB 650MG DOSE (2X325MG) PO PRN (02:59)
[2024-07-11] MEDS: VALSARTAN 80 MG TAB (DIOVAN) PO ONE (04:35)
[2024-07-11 07:47] LABS: BASO % 0.3 % (0.0-1.0); EOS # 0.2 10^3/uL (0.0-0.5); EOS % 1.9 % (0.0-3.0); HEMATOCRIT 34.6 % (36.0-47.0); HEMOGLOBIN 11.6 g/dl (12.0-15.5); LYMPH # 1.5 10^3/uL (1.5-5.0); LYMPH % 14.3 % (24.0-44.0); MEAN CORPUSCULAR HEMOGLOBIN 30.9 pg (27.0-33.0); MEAN CORPUSCULAR HGB CONC 33.5 g/dl (32.0-36.5); MEAN CORPUSCULAR VOLUME 92.3 fl (80.0-96.0); MONO # 0.6 10^3/uL (0.0-0.8); NEUTROPHILS # 8.2 10^3/uL (1.5-8.5); NEUTROPHILS % 76.9 % (36.0-66.0); PLATELET COUNT, AUTOMATED 170 10^3/uL (150-450); RED BLOOD COUNT 3.75 10^6/uL (4.00-5.40); WHITE BLOOD COUNT 10.6 10^3/uL (4.0-10.0)
[2024-07-11 08:19] LABS: BLOOD UREA NITROGEN 12 MG/DL (9-23); CALCIUM LEVEL 8.8 MG/DL (8.3-10.6); CARBON DIOXIDE LEVEL 28 MMOL/L (20-31); CHLORIDE LEVEL 106 MMOL/L (98-107); CREATININE FOR GFR 0.55 MG/DL (0.55-1.30); GLOMERULAR FILTRATION RATE > 60.0 (>32); GLUCOSE, FASTING 102 MG/DL (74-106); POTASSIUM SERUM 3.6 MMOL/L (3.5-5.1); SODIUM LEVEL 140 MMOL/L (136-145)
[2024-07-11] MEDS ORDERED: cefTRIAXone SOD 1 GM in D5W MINI-BAG PLUS 50 ML IV SCH (09:00)
[2024-07-11] MEDS: HEPARIN SOD (PORCINE) 5000UNITS/ML 1ML VIAL/SYRINGE SC SCH (09:35)
[2024-07-11] MEDS: ACETAMINOPHEN 500 MG TAB PO SCH (09:35)
[2024-07-11] MEDS: OMEPRAZOLE 20MG CAP PO SCH (09:35)
[2024-07-11] MEDS ORDERED: KETOROLAC 30 MG/ML 1ML VIAL IV SCH (14:00)
[2024-07-11] MEDS: KETOROLAC 30 MG/ML 1ML VIAL IV ONE (14:35)
[2024-07-11] MEDS ORDERED: VALSARTAN 80 MG TAB (DIOVAN) PO SCH (21:00)
[2024-07-11] MEDS: VALSARTAN 80 MG TAB (DIOVAN) PO SCH (21:07)
[2024-07-11] MEDS: PHENobarbitaL 30 MG TAB PO SCH (21:08)
[2024-07-12 05:50] VITALS: BP 138/63; TEMP 97.5; O2SAT 94
[2024-07-12] MEDS: OMEPRAZOLE 20MG CAP PO SCH (09:08)
[2024-07-12] MEDS: CEFDINIR 300 MG CAP (OMNICEF) PO SCH (09:55)
[2024-07-12 12:00] VITALS: BP 140/58; TEMP 97.7; O2SAT 96
[2024-07-12] MEDS: oxyCODONE 5MG TAB PO PRN (15:59)
[2024-07-12 20:23] VITALS: BP 136/62; TEMP 97.9
[2024-07-13 04:25] VITALS: BP 161/66; TEMP 97
[2024-07-13 12:00] VITALS: BP 154/56; TEMP 97.3; O2SAT 95
[2024-07-13 21:13] VITALS: BP 142/60; TEMP 97.3; O2SAT 96
[2024-07-14 04:41] VITALS: BP 147/57; TEMP 97
[2024-07-14 08:02] LABS: HEMATOCRIT 34.8 % (36.0-47.0); HEMOGLOBIN 11.8 g/dl (12.0-15.5); MEAN CORPUSCULAR HEMOGLOBIN 31.1 pg (27.0-33.0); MEAN CORPUSCULAR HGB CONC 33.9 g/dl (32.0-36.5); MEAN CORPUSCULAR VOLUME 91.8 fl (80.0-96.0); PLATELET COUNT, AUTOMATED 188 10^3/uL (150-450); RED BLOOD COUNT 3.79 10^6/uL (4.00-5.40); WHITE BLOOD COUNT 7.1 10^3/uL (4.0-10.0)
[2024-07-14 08:27] LABS: BLOOD UREA NITROGEN 14 MG/DL (9-23); CALCIUM LEVEL 8.7 MG/DL (8.3-10.6); CARBON DIOXIDE LEVEL 27 MMOL/L (20-31); CHLORIDE LEVEL 108 MMOL/L (98-107); CREATININE FOR GFR 0.44 MG/DL (0.55-1.30); GLOMERULAR FILTRATION RATE > 60.0 (>32); GLUCOSE, FASTING 104 MG/DL (74-106); POTASSIUM SERUM 3.6 MMOL/L (3.5-5.1); SODIUM LEVEL 140 MMOL/L (136-145)
[2024-07-14 09:29] VITALS: BP 149/59
[2024-07-14 12:00] VITALS: BP 145/68; TEMP 97.1; O2SAT 96
[2024-07-14] MEDS: DICLOFENAC EPOLAMINE 1.3% PATCH TOP ONE (15:36)
== END 2024-07-14 15:55 | disposition home health service (06) ==
LOC: M ED 16:59 → M ED INP 21:14 → INTOOBSV 21:14 → M PCU 07-11 02:02 → M MS5PR 07-11 16:32
PROVIDERS: ADMIT Family Medicine; ATTEND Student in an Organized Health Care Education/Training Program
DX: R46.4 Slowness and poor responsiveness (principal); D72.829 Elevated white blood cell count, unspecified; K62.5 Hemorrhage of anus and rectum; N39.0 Urinary tract infection, site not specified; W19.XXXA Unspecified fall, initial encounter; I10 Essential (primary) hypertension; G31.84 Mild cognitive impairment of uncertain or unknown etiology; H91.90 Unspecified hearing loss, unspecified ear; R26.9 Unspecified abnormalities of gait and mobility; H54.7 Unspecified visual loss; Z86.79 Personal history of other diseases of the circulatory system; Z87.19 Personal history of other diseases of the digestive system; K21.9 Gastro-esophageal reflux disease without esophagitis; Z88.8 Allergy status to other drugs, medicaments and biological substances; Z79.899 Other long term (current) drug therapy
CPT/HCPCS: 36415; 36600; 70450; 70496; 70498; 71260; 72125; 73521; 74177; 80047; 80048; 80076; 81001; 82550; 82553; 82803; 83605; 83690; 83735; 84484; 85025; 85027; 85610; 85730; 87040; 87088; 87186; 93005; 93041; 93306; 93880; 94760; 96365; 96372; 96375; 97110; 97116; 97161; 97530; 99284; 99285; G0378; J0131; J0696; J1885; J2470; Q9967

== ENCOUNTER → 2024-08-31 | Outpatient (CLI) | payer MEDICARE, BC ==
[~2024-08-31] MED LIST changes: +AMLO1TAB25 PO; +CENT1TAB PO; +MENT120C TOP; +VALS1TAB68 PO
== END ==
LOC: M WUC 11:30
PROVIDERS: ATTEND Physician Assistant
DX: M79.671 Pain in right foot (principal); M19.071 Primary osteoarthritis, right ankle and foot

== ENCOUNTER → 2024-09-17 | Outpatient (CLI) | payer MEDICARE, BC | LOC: M RAD 11:53 | PROVIDERS: ATTEND Physician Assistant | DX: M79.604 Pain in right leg (principal); R60.0 Localized edema ==

== ENCOUNTER → 2024-12-16 | Outpatient (CLI) | payer MEDICARE, BC ==
[2024-12-16 09:04] LABS: HEMATOCRIT 41.9 % (36.0-47.0); HEMOGLOBIN 13.8 g/dl (12.0-15.5); MEAN CORPUSCULAR HEMOGLOBIN 30.4 pg (27.0-33.0); MEAN CORPUSCULAR HGB CONC 32.9 g/dl (32.0-36.5); MEAN CORPUSCULAR VOLUME 92.3 fl (80.0-96.0); PLATELET COUNT, AUTOMATED 241 10^3/uL (150-450); RED BLOOD COUNT 4.54 10^6/uL (4.00-5.40); WHITE BLOOD COUNT 6.9 10^3/uL (4.0-10.0)
[2024-12-16 09:34] LABS: ALBUMIN 3.7 G/DL (3.2-5.2); ALKALINE PHOSPHATASE 105 U/L (35-104); ALT/SGPT 26 U/L (7.0-40); AST/SGOT 19 U/L (<34); BILIRUBIN,TOTAL 0.4 MG/DL (0.3-1.2); BLOOD UREA NITROGEN 13 MG/DL (9-23); CALCIUM LEVEL 9.7 MG/DL (8.3-10.6); CARBON DIOXIDE LEVEL 31 MMOL/L (20-31); CHLORIDE LEVEL 106 MMOL/L (98-107); CHOLESTEROL LEVEL 224 MG/DL (<200); CHOLESTEROL RISK RATIO 3.23 (<5); CREATININE FOR GFR 0.43 MG/DL (0.55-1.30); GLOMERULAR FILTRATION RATE > 60.0 (>32); GLUCOSE, FASTING 102 MG/DL (74-106); HDL CHOLESTEROL 69.3 MG/DL (>40); LDL CHOLESTEROL 135.3 MG/DL (<100); NON-HDL-C 154.7 MG/DL; POTASSIUM SERUM 4.4 MMOL/L (3.5-5.1); SODIUM LEVEL 144 MMOL/L (136-145); TOTAL PROTEIN 6.9 G/DL (5.7-8.2); TRIGLYCERIDES LEVEL 97 MG/DL (<150)
[2024-12-16 09:35] LABS: THYROID STIMULATING HORMONE 3.218 uIU/ML (0.55-4.78)
[2024-12-16 09:56] LABS: HEMOGLOBIN A1c 5.6 % (4.0-6.0)
== END ==
LOC: M LAB 07:52
PROVIDERS: ATTEND Physician Assistant
DX: I10 Essential (primary) hypertension (principal); E78.5 Hyperlipidemia, unspecified; R73.03 Prediabetes

== ENCOUNTER 2025-05-15 17:20 | Inpatient (IN) | payer MEDICARE, BC, MEDICAID ==
[~2025-05-15] VITALS: Ht 162.6 cm; Wt 56.8 kg
[~2025-05-15 17:20] MED LIST changes: -PRAV40TA2 PO; +PRAV40TA85 PO
[2025-05-15 18:08] LABS: BASO # 0.0 10^3/uL (0.0-0.2); BASO % 0.2 % (0.0-1.0); EOS # 0.0 10^3/uL (0.0-0.5); EOS % 0.1 % (0.0-3.0); LYMPH # 1.2 10^3/uL (1.5-5.0); LYMPH % 7.0 % (24.0-44.0); MONO # 0.8 10^3/uL (0.0-0.8); MONO % 4.6 % (2.0-8.0); NEUTROPHILS # 15.3 10^3/uL (1.5-8.5); NEUTROPHILS % 87.5 % (36.0-66.0); PLATELET COUNT, AUTOMATED 194 10^3/uL (150-450)
[2025-05-15] MEDS: MORPHINE 2 MG/ML 1 ML VIAL IV ONE (18:16)
[2025-05-15] MEDS: ONDANSETRON 4MG 2ML VIAL IV ONE (18:16)
[2025-05-15 18:25] LABS: CALCIUM LEVEL 9.1 MG/DL (8.3-10.6); CARBON DIOXIDE LEVEL 27.0 MMOL/L (20-31); CHLORIDE LEVEL 103.0 MMOL/L (98-107); CREATININE FOR GFR 0.55 MG/DL (0.55-1.30); GLOMERULAR FILTRATION RATE 89.2 (>32); POTASSIUM SERUM 4.0 MMOL/L (3.5-5.1); SODIUM LEVEL 143.0 MMOL/L (136-145)
[2025-05-15] MEDS ORDERED: MULT1TAB50 PO (20:43)
[2025-05-15] MEDS ORDERED: LORA-1164 PO (20:43)
[2025-05-15] MEDS ORDERED: OMEP40CA5 PO (20:43)
[2025-05-15] MEDS ORDERED: HOME MED LIST COMPLETE! XX SCH (20:45)
[2025-05-15 21:43] VITALS: BP 154/74; TEMP 97.3; O2SAT 96
[2025-05-15] MEDS: ACETAMINOPHEN 500 MG TAB PO SCH (22:08)
[2025-05-15] MEDS: OMEPRAZOLE 20MG CAP PO SCH (22:09)
[2025-05-15] MEDS: VALSARTAN 80MG TAB PO SCH (22:16)
[2025-05-15] MEDS: NS (Normal Saline) 0.9% 1,000 ML IV SCH (22:48)
[2025-05-15] MEDS: ENOXAPARIN 40 MG/0.4 ML SYRINGE (J1650 PER 10MG) SC ONE (22:50)
[2025-05-16] MEDS: METHOCARBAMOL 1,000 MG/10 ML VIAL IV ONE (02:00)
[2025-05-16 05:00] VITALS: BP 124/62; TEMP 97.3; O2SAT 87
[2025-05-16 06:22] LABS: PLATELET COUNT, AUTOMATED 149 10^3/uL (150-450)
[2025-05-16 06:55] LABS: CALCIUM LEVEL 8.5 MG/DL (8.3-10.6); CARBON DIOXIDE LEVEL 27 MMOL/L (20-31); CHLORIDE LEVEL 105 MMOL/L (98-107); CREATININE FOR GFR 0.46 MG/DL (0.55-1.30); GLOMERULAR FILTRATION RATE > 90.0 (>32); POTASSIUM SERUM 3.9 MMOL/L (3.5-5.1); SODIUM LEVEL 142 MMOL/L (136-145)
[2025-05-16] MEDS: amLODIPine 10 MG TAB PO SCH (08:59)
[2025-05-16 11:39] LABS: KETONE, URINE AUTO RFX NEGATIVE (NEGATIVE); MUCUS, URINE RFX SMALL (NEGATIVE); RBC, URINE AUTO RFX 2 /HPF (0-3); SQUAM EPITHELIAL CELL UR AURFX 0 /HPF (0-6)
[2025-05-16 11:40] LABS: LEUKOCYTE ESTERASE UR AUTO RFX 1+ (NEGATIVE); NITRITE, URINE AUTO RFX POSITIVE (NEGATIVE); WBC, URINE AUTO RFX 30 /HPF (0-3)
[2025-05-16 12:02] VITALS: BP 127/51; TEMP 97.9; O2SAT 91
[2025-05-16] MEDS: cefTRIAXone SOD 1 GM in DEXTROSE 5% (D5W) ADV/MINI-BAG 50 ML IV SCH (14:27)
[2025-05-16 19:33] VITALS: BP 131/52; TEMP 97.7; O2SAT 90
[2025-05-16] MEDS: ENOXAPARIN 40 MG/0.4 ML SYRINGE (J1650 PER 10MG) SC ONE (20:41)
[2025-05-17] VITALS (9 sets, daily range): BP systolic 120–177; BP diastolic 54–78; TEMP 97.2–97.9; O2SAT 92–98
[2025-05-17 06:44] LABS: BASO # 0.0 10^3/uL (0.0-0.2); BASO % 0.4 % (0.0-1.0); EOS # 0.4 10^3/uL (0.0-0.5); EOS % 4.1 % (0.0-3.0); LYMPH # 2.0 10^3/uL (1.5-5.0); LYMPH % 22.2 % (24.0-44.0); MONO # 0.7 10^3/uL (0.0-0.8); MONO % 7.9 % (2.0-8.0); NEUTROPHILS # 5.8 10^3/uL (1.5-8.5); NEUTROPHILS % 64.8 % (36.0-66.0); PLATELET COUNT, AUTOMATED 146 10^3/uL (150-450)
[2025-05-17 07:04] LABS: CALCIUM LEVEL 8.4 MG/DL (8.3-10.6); CARBON DIOXIDE LEVEL 26 MMOL/L (20-31); CHLORIDE LEVEL 106 MMOL/L (98-107); CREATININE FOR GFR 0.44 MG/DL (0.55-1.30); GLOMERULAR FILTRATION RATE > 90.0 (>32); POTASSIUM SERUM 4.0 MMOL/L (3.5-5.1); SODIUM LEVEL 144 MMOL/L (136-145)
[2025-05-17] MEDS: LIDOCAINE W/EPINEPHrine 1% 20 ML VIAL As Ordered ONE (14:57)
[2025-05-17] MEDS ORDERED: ACETAMINOPHEN 1000MG/100ML IV BAG As Ordered ONE (15:00)
[2025-05-17] MEDS ORDERED: ROCURONIUM BROMIDE 50MG/5ML VIAL As Ordered ONE (15:02)
[2025-05-17] MEDS ORDERED: LIDOCAINE 2% 100 MG/5 ML SDV (FOR ANES.) As Ordered ONE (15:02)
[2025-05-17] MEDS ORDERED: SUGAMMADEX SODIUM 500 MG/5 ML VIAL As Ordered ONE (15:02)
[2025-05-17] MEDS ORDERED: dexAMETHasone 4 MG/ML 1 ML VIAL As Ordered ONE (15:03)
[2025-05-17] MEDS ORDERED: ONDANSETRON 4MG 2ML VIAL As Ordered ONE (15:03)
[2025-05-17] MEDS ORDERED: ONDANSETRON 4MG 2ML VIAL IV PRN (17:10)
[2025-05-17] MEDS ORDERED: LABETALOL 100 MG/20 ML VIAL IV PRN (18:20)
[2025-05-18 03:45] VITALS: BP 150/71; TEMP 97.2; O2SAT 97
[2025-05-18 06:31] LABS: PLATELET COUNT, AUTOMATED 159 10^3/uL (150-450)
[2025-05-18 07:01] LABS: ALT/SGPT 18 U/L (7.0-40); AST/SGOT 22 U/L (<34); CALCIUM LEVEL 8.9 MG/DL (8.3-10.6); CARBON DIOXIDE LEVEL 27 MMOL/L (20-31); CHLORIDE LEVEL 104 MMOL/L (98-107); CREATININE FOR GFR 0.45 MG/DL (0.55-1.30); GLOMERULAR FILTRATION RATE > 90.0 (>32); POTASSIUM SERUM 4.1 MMOL/L (3.5-5.1); SODIUM LEVEL 143 MMOL/L (136-145)
[2025-05-18 08:58] VITALS: BP 174/68; TEMP 98.1; O2SAT 92
[2025-05-18 11:00] VITALS: BP 183/87
[2025-05-18 11:02] VITALS: BP 132/49; O2SAT 92
[2025-05-18 12:20] VITALS: BP 153/67; TEMP 97.7; O2SAT 92
[2025-05-18] MEDS ORDERED: **hydrALAZINE** 10 MG TAB PO PRN (12:25)
[2025-05-18] MEDS: ENOXAPARIN 30 MG/0.3 ML SYRINGE (J1650 PER 10MG) SC SCH (17:15)
[2025-05-18] MEDS ORDERED: COLA100C5 PO (17:43)
[2025-05-18] MEDS ORDERED: SENN8.6T28 PO (17:43)
[2025-05-18] MEDS ORDERED: OXYC-517 PO (17:43)
[2025-05-18] MEDS ORDERED: LOVE1INJ SC (19:25)
[2025-05-18 20:27] VITALS: BP 114/66; TEMP 97.2; O2SAT 94
[2025-05-19 04:15] VITALS: BP 166/74; TEMP 97.3; O2SAT 92
[2025-05-19 08:53] VITALS: BP 167/72
== END 2025-05-19 11:05 | DRG 481 ==
LOC: EDBD 17:20 → M ED 17:20 → M ED INP 19:46 → M MS5PR 21:15
PROVIDERS: ADMIT Internal Medicine; ATTEND Internal Medicine
PROC: 0QS604Z Reposition Right Upper Femur with Internal Fixation Device, Open Approach (ICD-10-PCS; principal; 2025-05-17 11:30)
DX: S72.011A Unspecified intracapsular fracture of right femur, initial encounter for closed fracture (principal); J98.11 Atelectasis; N39.0 Urinary tract infection, site not specified; I10 Essential (primary) hypertension; K21.9 Gastro-esophageal reflux disease without esophagitis; R09.02 Hypoxemia; W19.XXXA Unspecified fall, initial encounter; M21.371 Foot drop, right foot; B96.20 Unspecified Escherichia coli [E. coli] as the cause of diseases classified elsewhere; F03.90 Unspecified dementia, unspecified severity, without behavioral disturbance, psychotic disturbance, mood disturbance, and anxiety; Y92.129 Unspecified place in nursing home as the place of occurrence of the external cause; Z86.73 Personal history of transient ischemic attack (TIA), and cerebral infarction without residual deficits; D72.829 Elevated white blood cell count, unspecified; Z66 Do not resuscitate; Z79.899 Other long term (current) drug therapy; Z88.6 Allergy status to analgesic agent

== ENCOUNTER → 2025-05-25 | Outpatient (REF) ==
[~2025-05-25] MED LIST changes: +COLA100C5 PO; +LORA-1164 PO; +LOVE1INJ SC; +MULT1TAB50 PO; +OMEP40CA5 PO; +OXYC-517 PO; +SENN8.6T28 PO
[2025-05-25 09:23] LABS: PLATELET COUNT, AUTOMATED 282 10^3/uL (150-450)
[2025-05-25 09:49] LABS: CALCIUM LEVEL 9.4 MG/DL (8.3-10.6); CARBON DIOXIDE LEVEL 27 MMOL/L (20-31); CHLORIDE LEVEL 102 MMOL/L (98-107); CREATININE FOR GFR 0.42 MG/DL (0.55-1.30); GLOMERULAR FILTRATION RATE > 90.0 (>32); POTASSIUM SERUM 3.8 MMOL/L (3.5-5.1); SODIUM LEVEL 143 MMOL/L (136-145)
== END ==
PROVIDERS: ATTEND Physician Assistant
DX: I10 Essential (primary) hypertension (principal)

== ENCOUNTER → 2025-05-27 | Outpatient (REF) ==
[2025-05-27 11:10] LABS: PLATELET COUNT, AUTOMATED 286 10^3/uL (150-450)
[2025-05-27 11:38] LABS: CALCIUM LEVEL 9.4 MG/DL (8.3-10.6); CARBON DIOXIDE LEVEL 25 MMOL/L (20-31); CHLORIDE LEVEL 106 MMOL/L (98-107); CREATININE FOR GFR 0.42 MG/DL (0.55-1.30); GLOMERULAR FILTRATION RATE > 90.0 (>32); POTASSIUM SERUM 3.9 MMOL/L (3.5-5.1); SODIUM LEVEL 144 MMOL/L (136-145)
== END ==
PROVIDERS: ATTEND Physician Assistant
DX: D72.829 Elevated white blood cell count, unspecified (principal)

== ENCOUNTER → 2025-05-30 | Outpatient (REF) | payer BC, MEDICAID, MEDICARE, OTHER | LOC: M SOG 07:06 → EDSTATUS 08:22 | PROVIDERS: ATTEND Neuromusculoskeletal Medicine, Sports Medicine | DX: S72.001A Fracture of unspecified part of neck of right femur, initial encounter for closed fracture (principal); M16.11 Unilateral primary osteoarthritis, right hip ==

== ENCOUNTER → 2025-06-01 | Outpatient (REF) ==
[2025-06-01 10:11] LABS: PLATELET COUNT, AUTOMATED 331 10^3/uL (150-450)
[2025-06-01 10:45] LABS: CALCIUM LEVEL 9.7 MG/DL (8.3-10.6); CARBON DIOXIDE LEVEL 28 MMOL/L (20-31); CHLORIDE LEVEL 104 MMOL/L (98-107); CREATININE FOR GFR 0.44 MG/DL (0.55-1.30); GLOMERULAR FILTRATION RATE > 90.0 (>32); POTASSIUM SERUM 3.7 MMOL/L (3.5-5.1); SODIUM LEVEL 144 MMOL/L (136-145)
== END ==
PROVIDERS: ATTEND Physician Assistant
DX: I10 Essential (primary) hypertension (principal)

== ENCOUNTER → 2025-06-02 | Outpatient (REF) | PROVIDERS: ATTEND Physician Assistant | DX: R05.9 Cough, unspecified (principal) ==

== ENCOUNTER → 2025-06-02 | Outpatient (REF) | PROVIDERS: ATTEND Physician Assistant | DX: R05.9 Cough, unspecified (principal) ==

== ENCOUNTER → 2025-06-17 | Outpatient (REF) | payer BC, MEDICAID, MEDICARE, OTHER ==
[2025-06-17 17:39] LABS: APPEARANCE, URINE HAZY (CLEAR); BACTERIA, URINE AUTO 1+ (NEGATIVE); BILIRUBIN, URINE AUTO NEGATIVE (NEGATIVE); BLOOD, URINE BLOOD 1+ (NEGATIVE); GLUCOSE, URINE (UA) AUTO NEGATIVE (NEGATIVE); KETONE, URINE AUTO NEGATIVE (NEGATIVE); LEUKOCYTE ESTERASE, URINE AUTO 3+ (NEGATIVE); MUCUS, URINE SMALL (NEGATIVE); NITRITE, URINE AUTO NEGATIVE (NEGATIVE); PROTEIN, URINE AUTO NEGATIVE (NEGATIVE); RBC, URINE AUTO 7 /HPF (0-3); SPECIFIC GRAVITY URINE AUTO 1.017 (1.002-1.035); SQUAMOUS EPITHELIAL CELL UR AU 1 /HPF (0-6); UROBILINOGEN, URINE AUTO 0.2 mg/dL (0.0-2.0); WBC, URINE AUTO 27 /HPF (0-3)
== END ==
PROVIDERS: ATTEND Internal Medicine
DX: N39.0 Urinary tract infection, site not specified (principal)

== ENCOUNTER → 2025-07-01 | Outpatient (REF) ==
[2025-07-01 12:10] LABS: PLATELET COUNT, AUTOMATED 213 10^3/uL (150-450)
[2025-07-01 12:59] LABS: PHENOBARBITAL LEVEL 14.1 UG/ML (15.0-40.0)
[2025-07-01 13:10] LABS: ALT/SGPT 25 U/L (7.0-40); AST/SGOT 22 U/L (<34); CALCIUM LEVEL 9.5 MG/DL (8.3-10.6); CARBON DIOXIDE LEVEL 28 MMOL/L (20-31); CHLORIDE LEVEL 105 MMOL/L (98-107); CREATININE FOR GFR 0.42 MG/DL (0.55-1.30); GLOMERULAR FILTRATION RATE > 90.0 (>32); POTASSIUM SERUM 4.2 MMOL/L (3.5-5.1); SODIUM LEVEL 143 MMOL/L (136-145)
== END ==
PROVIDERS: ATTEND Internal Medicine
DX: G40.909 Epilepsy, unspecified, not intractable, without status epilepticus (principal)

== ENCOUNTER → 2025-07-06 | Outpatient (REF) | PROVIDERS: ATTEND Physician Assistant | DX: I10 Essential (primary) hypertension (principal); Z53.8 Procedure and treatment not carried out for other reasons ==

== ENCOUNTER → 2025-07-07 | Outpatient (REF) | PROVIDERS: ATTEND Physician Assistant | DX: I10 Essential (primary) hypertension (principal); Z53.8 Procedure and treatment not carried out for other reasons ==

== ENCOUNTER → 2025-07-13 | Outpatient (REF) | payer BC, MEDICAID, MEDICARE, OTHER | LOC: M SOG 13:16 → EDSTATUS 07-14 08:19 | PROVIDERS: ATTEND Neuromusculoskeletal Medicine, Sports Medicine | DX: S72.001D Fracture of unspecified part of neck of right femur, subsequent encounter for closed fracture with routine healing (principal) ==